=== PATIENT | female | born 1970 | race Hispanic/Latino ===

== ENCOUNTER 2017-06-10 13:30 | Inpatient (IN) | payer SELFPAY ==
[2017-06-10 14:17] LABS: HEMATOCRIT 43.8 % (36-48); MEAN CORPUSCULAR HEMOGLOBIN 30.4 pg (27.0-33.0); MEAN CORPUSCULAR HGB CONC 33.8 g/dL (32.0-36.0); MEAN CORPUSCULAR VOLUME 89.9 fL (79-99); RED BLOOD CELL COUNT(AUTO) 4.87 MIL/uL (4.00-5.50); WHITE BLOOD COUNT (AUTO) 9.5 K/uL (4.8-10.8)
[2017-06-10 14:18] LABS: BASOPHILS % (AUTO) 0.6 % (0.0-5.0); EOSINOPHILS % (AUTO) 1.2 % (0.0-8.0); LYMPHOCYTES % (AUTO) 22.2 % (21.0-51.0); MONOCYTES % (AUTO) 6.7 % (3.0-13.0); NEUTROPHILS % (AUTO) 69.3 % (40.0-77.0); PLATELET COUNT (AUTO) 312 K/uL (130-400); RED CELL DISTRIBUTION WIDTH 13.9 % (11.0-15.5)
[2017-06-10 14:26] LABS: CREATININE 0.7 mg/dL (0.5-1.5); POTASSIUM 3.9 mmol/L (3.5-5.1)
[2017-06-10 14:31] LABS: ALBUMIN 3.4 g/dL (3.5-5.0); BILIRUBIN,TOTAL 0.2 mg/dL (0.2-1.0); TOTAL PROTEIN, SERUM 8.5 g/dL (6.0-8.3)
[2017-06-10] MEDS ORDERED: ONDANSETRON HCL 4 MG/2 ML VIAL ONE ×2 (14:40→18:17)
[2017-06-10] MEDS ORDERED: LABETALOL HCL 5 MG/ML 20ML VIAL IV ONE (14:41)
[2017-06-10] MEDS ORDERED: MORPHINE SULFATE 4 MG/1ML SYG ONE ×2 (14:41→16:12)
[2017-06-10] MEDS ORDERED: NICARDIPINE IN NACL, ISO-OSM 200 ML IV ONE ×2 (15:54→19:33)
[2017-06-10 18:42] VITALS: BP 152/94
[2017-06-10 19:30] VITALS: BP 145/88
[2017-06-10 20:00] VITALS: BP 143/87
[2017-06-10] MEDS ORDERED: NICARDIPINE HCL 100 MG in SODIUM CHLORIDE 0.9% 60 ML IV PRN (20:30)
[2017-06-10 21:00] VITALS: BP 140/83
[2017-06-10] MEDS ORDERED: ONDANSETRON HCL MDV 20ML 2 MG/ML VIAL IVP PRN (21:45)
[2017-06-10 22:00] VITALS: BP 143/70
[2017-06-10] MEDS: ACETAMINOPHEN 325 MG TAB PO PRN (22:55)
[2017-06-10 23:00] VITALS: BP 148/87
[2017-06-11] VITALS (23 sets, daily range): BP systolic 92–184; BP diastolic 52–116
[2017-06-11] MEDS: CLONIDINE HCL 0.1 MG TABLET PO PRN ×3 (01:14→17:12)
[2017-06-11 04:02] LABS: HEMATOCRIT 37.3 % (36-48); MEAN CORPUSCULAR HEMOGLOBIN 31.1 pg (27.0-33.0); MEAN CORPUSCULAR HGB CONC 34.5 g/dL (32.0-36.0); PLATELET COUNT (AUTO) 315 K/uL (130-400); RED BLOOD CELL COUNT(AUTO) 4.14 MIL/uL (4.00-5.50); RED CELL DISTRIBUTION WIDTH 13.7 % (11.0-15.5)
[2017-06-11 04:26] LABS: BILIRUBIN,TOTAL 0.3 mg/dL (0.2-1.0); CREATININE 0.8 mg/dL (0.5-1.5); TOTAL PROTEIN, SERUM 7.3 g/dL (6.0-8.3)
[2017-06-11] MEDS: ACETAMINOPHEN EXTRA STRENGTH 500 MG TABLET PO PRN ×2 (07:50→17:22)
[2017-06-11] MEDS: HYDRALAZINE HCL 10 MG TABLET PO SCH ×3 (07:50→20:45)
[2017-06-11] MEDS: LISINOPRIL 2.5 MG TABLET PO SCH ×2 (07:51→09:00)
[2017-06-11] MEDS ORDERED: CAPTOPRIL 12.5 MG TABLET PO SCH (09:00)
[2017-06-11] MEDS ORDERED: HYDRALAZINE HCL 20 MG/ML VIAL IV PRN (10:00)
[2017-06-11] MEDS ORDERED: LISINOPRIL 2.5 MG TABLET PO SCH (14:30)
[2017-06-11] MEDS ORDERED: LABETALOL HCL 5 MG/ML 20ML VIAL IV SCH (14:30)
[2017-06-11] MEDS ORDERED: LISINOPRIL 20 MG TABLET PO SCH ×2 (14:45→15:18)
[2017-06-11] MEDS: LABETALOL HCL 200 MG TABLET PO SCH ×4 (14:45→20:45)
[2017-06-11] MEDS ORDERED: PHARMACY COMMUNICATION MISC SCH (18:45)
[2017-06-11] MEDS ORDERED: ALPRAZOLAM 0.5 MG TABLET PO ONE (18:45)
[2017-06-11] MEDS ORDERED: COMPOUND PO MISCELLANEOUS 1 EACH MISC MISC PRN (18:45)
[2017-06-11 19:19] LABS: CREATINE KINASE MB 1.4 ng/mL (0.5-3.6); TROPONIN I 0.07 ng/mL (0.00-0.06)
[2017-06-11] MEDS ORDERED: LIDOCAINE HCL 2% VISCOUS 30 ML, MAG HYDROX/AL HYDROX/SIMETH 30 ML, DICYCLOMINE HCL 20 MG PO ONE ×3 (19:30)
[2017-06-12] VITALS (21 sets, daily range): BP systolic 107–156; BP diastolic 57–107
[2017-06-12] MEDS: LABETALOL HCL 200 MG TABLET PO SCH ×2 (08:43→20:09)
[2017-06-12] MEDS: LISINOPRIL 40 MG TABLET PO SCH (08:43)
[2017-06-12] MEDS: ACETAMINOPHEN 325 MG TAB PO PRN (10:52)
[2017-06-13 03:52] VITALS: BP 146/95
[2017-06-13 05:21] LABS: BASOPHILS % (AUTO) 0.6 % (0.0-5.0); EOSINOPHILS % (AUTO) 1.6 % (0.0-8.0); HEMATOCRIT 38.1 % (36-48); LYMPHOCYTES % (AUTO) 29.8 % (21.0-51.0); MEAN CORPUSCULAR HEMOGLOBIN 30.8 pg (27.0-33.0); MEAN CORPUSCULAR HGB CONC 33.8 g/dL (32.0-36.0); MEAN CORPUSCULAR VOLUME 90.9 fL (79-99); MONOCYTES % (AUTO) 8.7 % (3.0-13.0); NEUTROPHILS % (AUTO) 59.3 % (40.0-77.0); NUCLEATED RED BLOOD CELLS 0.1 % (0.0-0.19); PLATELET COUNT (AUTO) 284 K/uL (130-400); RED BLOOD CELL COUNT(AUTO) 4.19 MIL/uL (4.00-5.50); RED CELL DISTRIBUTION WIDTH 14.3 % (11.0-15.5); WHITE BLOOD COUNT (AUTO) 7.5 K/uL (4.8-10.8)
[2017-06-13 05:41] LABS: CREATININE 0.9 mg/dL (0.5-1.5); POTASSIUM 3.9 mmol/L (3.5-5.1)
[2017-06-13 07:10] VITALS: BP 159/103
[2017-06-13] MEDS: LABETALOL HCL 200 MG TABLET PO SCH (07:59)
[2017-06-13] MEDS: LISINOPRIL 40 MG TABLET PO SCH (07:59)
[2017-06-13] MEDS ORDERED: NIFEDIPINE ER 30 MG TAB PO SCH (11:15)
[2017-06-13 11:40] VITALS: BP 179/102
[2017-06-13] MEDS ORDERED: LISI-613 PO (12:29)
[2017-06-13] MEDS ORDERED: IBUP-2070 PO (12:29)
== END 2017-06-13 14:10 | disposition left against medical advice (07) | DRG 305 ==
LOC: EDH 13:30 → EDHIP 13:31 → 2BH 18:48 → 2DH 06-12 16:45
PROVIDERS: ADMIT Family Medicine; ATTEND Family Medicine
DX: I16.1 Hypertensive emergency (principal); E66.9 Obesity, unspecified; F32.9 Major depressive disorder, single episode, unspecified; I10 Essential (primary) hypertension; Z91.14 Patient's other noncompliance with medication regimen; Z91.19 Patient's noncompliance with other medical treatment and regimen; Z91.5 Personal history of self-harm
CPT/HCPCS: 36415; 70450; 76770; 80048; 80053; 81025; 82550; 82553; 83874; 84484; 85025; 85027; 93005; 99291; J0360; J2270; J2405; J3490

== ENCOUNTER 2017-12-08 12:09 | Emergency (ER) | payer SELFPAY ==
[~2017-12-08 12:09] MED LIST: IBUP-2070 PO; LISI-613 PO
[2017-12-08 12:55] LABS: APPEARANCE,URINE Clear (CLEAR); BASOPHILS % (AUTO) 0.5 % (0.0-5.0); BILIRUBIN,URINE Negative (NEGATIVE); COLOR,URINE Yellow (YELLOW); EOSINOPHILS % (AUTO) 0.9 % (0.0-8.0); GLUCOSE, URINE (UA) Negative (NEGATIVE); HEMATOCRIT 42.8 % (36-48); KETONES,URINE Negative (NEGATIVE); LEUKOCYTE ESTERASE ,URINE Negative (NEGATIVE); LYMPHOCYTES % (AUTO) 14.1 % (21.0-51.0); MEAN CORPUSCULAR HEMOGLOBIN 30.6 pg (27.0-33.0); MEAN CORPUSCULAR HGB CONC 34.1 g/dL (32.0-36.0); MEAN CORPUSCULAR VOLUME 89.6 fL (79-99); MONOCYTES % (AUTO) 7.2 % (3.0-13.0); NEUTROPHILS % (AUTO) 77.3 % (40.0-77.0); NITRATE,URINE Negative (NEGATIVE); OCCULT BLOOD,URINE Small (NEGATIVE); PH,URINE 6.5 (5.0-8.0); PLATELET COUNT (AUTO) 249 K/uL (130-400); PROTEIN,URINE POS 2+ (NEGATIVE); RED BLOOD CELL COUNT(AUTO) 4.78 MIL/uL (4.00-5.50); RED CELL DISTRIBUTION WIDTH 13.9 % (11.0-15.5); UROBILINOGEN,URINE 0.2 mg/dL (0.2-1.0); WHITE BLOOD COUNT (AUTO) 11.4 K/uL (4.8-10.8)
[2017-12-08 13:07] LABS: CREATININE 0.9 mg/dL (0.5-1.5); POTASSIUM 3.8 mmol/L (3.5-5.1)
[2017-12-08] MEDS ORDERED: LABETALOL HCL 5 MG/ML 20ML VIAL IV ONE (13:08)
[2017-12-08 13:12] LABS: ALBUMIN 3.4 g/dL (3.5-5.0); BILIRUBIN,TOTAL 0.3 mg/dL (0.2-1.0); TOTAL PROTEIN, SERUM 8.7 g/dL (6.0-8.3)
[2017-12-08] MEDS ORDERED: IOHEXOL-350 75 ML VIAL IV ONE (13:23)
[2017-12-08 13:24] LABS: BACTERIA,URINE Few /HPF (None Seen); RBC,URINE 0-1 /HPF (0-1); WBC,URINE 0-1 /HPF (0-1)
[2017-12-08] MEDS ORDERED: NICARDIPINE IN NACL, ISO-OSM 200 ML IV ONE (13:47)
[2017-12-08 14:14] LABS: AMPHET/METH SCREEN,URINE NEGATIVE (NEGATIVE); BARBITURATE SCREEN, URINE NEGATIVE (NEGATIVE); BENZODIAZEPINES SCREEN,URINE NEGATIVE (NEGATIVE); CANNABINOID SCREEN,URINE NEGATIVE (NEGATIVE); COCAINE SCREEN,URINE NEGATIVE (NEGATIVE); OPIATE SCREEN,URINE NEGATIVE (NEGATIVE); PHENCYCLIDINE SCREEN,URINE NEGATIVE (NEGATIVE)
[2017-12-08] MEDS ORDERED: KETOROLAC TROMETHAMINE 15MG/ML ONE (15:01)
[2017-12-08] MEDS ORDERED: NIFEDIPINE 10 MG CAP ONE (15:57)
[2017-12-08] MEDS ORDERED: CLONIDINE HCL 0.1 MG TABLET ONE (15:57)
== END 2017-12-08 16:49 | disposition home or self-care (01) ==
LOC: EDH 12:09
DX: I10 Essential (primary) hypertension (principal); R10.11 Right upper quadrant pain; Z98.890 Other specified postprocedural states; Z88.0 Allergy status to penicillin
CPT/HCPCS: 36415; 74177; 80053; 80305; 81001; 85025; 96365; 96366; 96375; 99285; J1885; J3490 ×2; Q9967

== ENCOUNTER 2020-05-12 10:53 | Emergency (ER) | payer SELFPAY ==
[~2020-05-12 10:53] MED LIST changes: -LISI-613 PO; +LISI20TA24 PO
[2020-05-12] MEDS ORDERED: MAG HYDROX/AL HYDROX/SIMETH ES 30 ML SUSP UDCUP ONE (11:07)
[2020-05-12] MEDS ORDERED: LIDOCAINE HCL 2% VISCOUS 15 ML UDCUP ONE (11:07)
[2020-05-12] MEDS ORDERED: NIFEDIPINE 10 MG CAP ONE ×2 (11:08→12:44)
[2020-05-12] MEDS ORDERED: FAMOTIDINE 20MG TAB 20 MG TAB ONE (11:08)
[2020-05-12 11:42] LABS: BASOPHILS % (AUTO) 0.3 % (0.0-5.0); EOSINOPHILS % (AUTO) 0.5 % (0.0-8.0); HEMATOCRIT 42.9 % (36-48); LYMPHOCYTES % (AUTO) 13.2 % (21.0-51.0); MEAN CORPUSCULAR HEMOGLOBIN 29.1 pg (27.0-33.0); MEAN CORPUSCULAR HGB CONC 33.3 g/dL (32.0-36.0); MEAN CORPUSCULAR VOLUME 87.2 fL (79-99); MONOCYTES % (AUTO) 4.6 % (3.0-13.0); PLATELET COUNT (AUTO) 351 K/uL (130-400); RED BLOOD CELL COUNT(AUTO) 4.92 MIL/uL (4.00-5.50); RED CELL DISTRIBUTION WIDTH 14.6 % (11.0-15.5); WHITE BLOOD COUNT (AUTO) 14.8 K/uL (4.8-10.8)
[2020-05-12 11:55] LABS: APPEARANCE,URINE Clear (CLEAR); BILIRUBIN,URINE Negative (NEGATIVE); COLOR,URINE Yellow (YELLOW); GLUCOSE, URINE (UA) Negative (NEGATIVE); KETONES,URINE Negative (NEGATIVE); LEUKOCYTE ESTERASE ,URINE Trace (NEGATIVE); NITRATE,URINE Negative (NEGATIVE); OCCULT BLOOD,URINE Negative (NEGATIVE); PROTEIN,URINE Trace mg/dL (NEGATIVE)
[2020-05-12 12:15] LABS: ALANINE AMINOTRANSFERASE 22 U/L (12-78); ALBUMIN 2.9 g/dL (3.5-5.0); ASPARTATE AMINOTRANSFERASE 16 U/L (10-37); BILIRUBIN,TOTAL 0.2 mg/dL (0.2-1.0); CARBON DIOXIDE 32 mmol/L (21-32); CHLORIDE 99 mmol/L (101-111); GLOMERULAR FILTR. RATE CALC 63 mL/min (>60); GLUCOSE,RANDOM 103 mg/dL (70-105); POTASSIUM 3.3 mmol/L (3.5-5.1); SODIUM SERUM 137 mmol/L (136-145); TOTAL PROTEIN, SERUM 7.4 g/dL (6.0-8.3); UREA NITROGEN, BLOOD 15 mg/dL (7-18)
[2020-05-12 12:17] LABS: LIPASE < 50 U/L (114-286)
[2020-05-12 12:29] LABS: B-TYPE NATRIURETIC PEPTIDE 19 pg/mL (0-100)
[2020-05-12 12:37] LABS: BACTERIA,URINE Few /HPF (None Seen); CALCIUM OXALATE CRYSTALS,UR Few /LPF (None Seen); RBC,URINE 0-1 /HPF (0-1); SQUAMOUS EPITHELIAL CELL,UR Rare /HPF (0-2); WBC,URINE 0-1 /HPF (0-1)
[2020-05-12] MEDS ORDERED: POTASSIUM BICARB/CIT AC 25 MEQ TABLET.EFF ONE (12:44)
== END 2020-05-12 13:20 | disposition home or self-care (01) ==
LOC: EDH 10:53
DX: K29.00 Acute gastritis without bleeding (principal); R03.0 Elevated blood-pressure reading, without diagnosis of hypertension; E66.01 Morbid (severe) obesity due to excess calories; E87.6 Hypokalemia; I10 Essential (primary) hypertension; Z88.0 Allergy status to penicillin
CPT/HCPCS: 36415; 71045; 80053; 81001; 83605; 83690; 83880; 84484; 85025; 93005

== ENCOUNTER 2020-11-19 00:13 | Emergency (ER) | payer BC ==
[~2020-11-19] VITALS: Ht 152.4 cm; Wt 107.5 kg
[2020-11-19 00:15] VITALS: BP 148/92
[2020-11-19] MEDS ORDERED: OXYMETAZOLINE HCL SPRAY 15 ML BOTTLE ONE (00:30)
[2020-11-19] MEDS ORDERED: OXYMETAZOLINE HCL SPRAY 15 ML BOTTLE EN ONE (01:00)
== END 2020-11-19 02:02 | disposition home or self-care (01) ==
LOC: EDH 00:13
DX: R04.0 Epistaxis (principal); E78.00 Pure hypercholesterolemia, unspecified; I10 Essential (primary) hypertension; Z79.1 Long term (current) use of non-steroidal anti-inflammatories (NSAID); Z79.899 Other long term (current) drug therapy
CPT/HCPCS: 99282

== ENCOUNTER 2023-11-24 14:26 | Inpatient (IN) | payer BC ==
[~2023-11-24] VITALS: Ht 152.4 cm; Wt 105.9 kg
[~2023-11-24 14:26] MED LIST changes: +AEC81 PO; +CLON0.1T PO; +FENO134C21 PO; -IBUP-2070 PO; +LABE200T7 PO; -LISI20TA24 PO; +LOSA100T59 PO
[2023-11-24] MEDS: ondanSETRON 4MG INJ IVP STA (14:55)
[2023-11-24] MEDS: 0.9%NACL 1000ML 1,000 ML IV STA (14:55)
[2023-11-24] MEDS: morPHINE 2 MG SYG IVP STA (14:55)
[2023-11-24 15:01] LABS: BASOPHILS # (AUTO) 0.05 K/uL (0.00-0.20); BASOPHILS % (AUTO) 0.2 % (0.0-5.0); EOSINOPHILS # (AUTO) 0.17 K/uL (0.00-0.70); EOSINOPHILS % (AUTO) 0.8 % (0.0-8.0); HEMATOCRIT 45.2 % (36-48); IMMATURE GRANULOCYTE ABSOLUTE 0.12 K/uL (0-1); LYMPHOCYTES # (AUTO) 2.6 K/uL (1.0-4.8); LYMPHOCYTES % (AUTO) 12.4 % (21.0-51.0); MEAN CORPUSCULAR HEMOGLOBIN 29.5 pg (27.0-33.0); MEAN CORPUSCULAR HGB CONC 32.7 g/dL (32.0-36.0); MONOCYTES # (AUTO) 1.1 K/uL (0.1-1.0); MONOCYTES % (AUTO) 5.2 % (3.0-13.0); NEUTROPHILS # (AUTO) 16.6 K/uL (1.8-7.7); NEUTROPHILS % (AUTO) 80.8 % (40.0-77.0); PLATELET COUNT (AUTO) 466 K/uL (130-400); RED BLOOD CELL COUNT(AUTO) 5.02 MIL/uL (4.00-5.50); RED CELL DISTRIBUTION WIDTH 13.2 % (11.0-15.5); WHITE BLOOD COUNT (AUTO) 20.5 K/uL (4.8-10.8)
[2023-11-24 15:15] LABS: CREATININE 1.2 mg/dL (0.5-1.0); POTASSIUM 4.3 mmol/L (3.5-5.1)
[2023-11-24 15:19] LABS: ALBUMIN 3.8 g/dL (3.5-5.0); BILIRUBIN,TOTAL 0.4 mg/dL (0.2-1.0); TOTAL PROTEIN, SERUM 8.8 g/dL (6.0-8.3)
[2023-11-24] MEDS: hydroMORPHone 0.5 MG SYG (0.5MG/0.5ML) IVP STA ×2 (15:25→17:38)
[2023-11-24 15:36] LABS: INR 1.05 (0.85-1.15); PROTHROMBIN TIME 11.3 SEC (9.6-11.6)
[2023-11-24 15:37] LABS: PARTIAL THROMBOPLASTIN TIME 22.8 SEC (26.3-35.5)
[2023-11-24] MEDS: levoFLOXacin 500 MG/D5W 100 ML 100 ML ONE (15:47)
[2023-11-24] MEDS: levoFLOXacin 250 MG/D5W 50ML 50 ML ONE (15:47)
[2023-11-24] MEDS: levoFLOXacin 750 MG/D5W 150ML BAG IV STA (15:47)
[2023-11-24] MEDS: hydrALAZine 20MG/ML VIAL IV STA (17:37)
[2023-11-24 17:52] LABS: CHOLESTEROL 174 mg/dL (<200); HDL CHOLESTEROL 58 mg/dL (35-85); LDL DIRECT 94 mg/dL (0-99); TRIGLYCERIDES 193 mg/dL (30-200)
[2023-11-24 18:08] LABS: APPEARANCE,URINE TURBID (CLEAR); BILIRUBIN,URINE NEGATIVE (NEGATIVE); COLOR,URINE ORANGE (YELLOW); GLUCOSE, URINE (UA) NEGATIVE (NEGATIVE); KETONES,URINE 5 mg/dL (NEGATIVE); LEUKOCYTE ESTERASE ,URINE 250 Leu/uL (NEGATIVE); NITRATE,URINE NEGATIVE (NEGATIVE); PH,URINE 5.5 (5.0-8.0); PROTEIN,URINE 100 mg/dL (NEGATIVE)
[2023-11-24 18:11] LABS: ADD UA MICROSCOPIC YES
[2023-11-24 18:19] LABS: RBC,URINE 26-50 /HPF (0-1)
[2023-11-24] MEDS ORDERED: ASPI-1443 PO (20:11)
[2023-11-24] MEDS ORDERED: LABE200T7 PO (20:11)
[2023-11-24] MEDS ORDERED: FENO134C21 PO (20:11)
[2023-11-24] MEDS ORDERED: LOSA100T59 PO (20:11)
[2023-11-24] MEDS ORDERED: CLON0.1T PO (20:11)
[2023-11-24] MEDS ORDERED: ondanSETRON 4MG INJ IVP PRN (20:30)
[2023-11-24] MEDS ORDERED: acetaMINOPHEN 650 MG SUPPOSITORY RC PRN (20:30)
[2023-11-24] MEDS ORDERED: acetaMINOPHEN 325 MG TAB PO PRN (20:30)
[2023-11-24] MEDS: morPHINE 2 MG SYG IVP PRN (20:43)
[2023-11-24] MEDS: LAbetaLOL 20MG SYG IV PRN (20:43)
[2023-11-24] MEDS: cefTRIAXone 1G VIAL IVPB SCH (20:43)
[2023-11-24] MEDS: metRONIDazole 500MG/100ML BAG IV SCH (20:48)
[2023-11-24] MEDS: LACTATED RINGERS 1000ML IV ONE (21:11)
[2023-11-24] MEDS: hydrALAZine 20MG/ML VIAL IV PRN (22:49)
[2023-11-24] MEDS: HYDROcodone/APAP 5/325 1 TAB TABLET PO PRN (22:57)
[2023-11-24 23:50] VITALS: BP 155/88; PULSE 115; RESP 19; TEMP 98.5
[2023-11-25] VITALS (8 sets, daily range): BP systolic 114–163; BP diastolic 70–99; PULSE 82–107; RESP 17–20; TEMP 97.8–98.8; O2SAT 93–96
[2023-11-25] MEDS: INSULIN humuLIN R 100 UNIT/ML 3ML SQ SCH
[2023-11-25 04:49] LABS: BASOPHILS # (AUTO) 0.03 K/uL (0.00-0.20); BASOPHILS % (AUTO) 0.2 % (0.0-5.0); EOSINOPHILS # (AUTO) 0.05 K/uL (0.00-0.70); EOSINOPHILS % (AUTO) 0.3 % (0.0-8.0); HEMATOCRIT 40.5 % (36-48); IMMATURE GRANULOCYTE ABSOLUTE 0.08 K/uL (0-1); LYMPHOCYTES # (AUTO) 2.3 K/uL (1.0-4.8); LYMPHOCYTES % (AUTO) 15.2 % (21.0-51.0); MEAN CORPUSCULAR HEMOGLOBIN 30.2 pg (27.0-33.0); MEAN CORPUSCULAR HGB CONC 32.3 g/dL (32.0-36.0); MEAN CORPUSCULAR VOLUME 93.3 fL (79-99); MONOCYTES # (AUTO) 0.7 K/uL (0.1-1.0); MONOCYTES % (AUTO) 4.6 % (3.0-13.0); NEUTROPHILS # (AUTO) 11.8 K/uL (1.8-7.7); NEUTROPHILS % (AUTO) 79.2 % (40.0-77.0); PLATELET COUNT (AUTO) 397 K/uL (130-400); RED BLOOD CELL COUNT(AUTO) 4.34 MIL/uL (4.00-5.50); RED CELL DISTRIBUTION WIDTH 13.2 % (11.0-15.5); WHITE BLOOD COUNT (AUTO) 14.9 K/uL (4.8-10.8)
[2023-11-25 05:09] LABS: CREATININE 1.1 mg/dL (0.5-1.0); MAGNESIUM 1.8 mg/dL (1.80-2.40); PHOSPHORUS 3.5 mg/dL (2.5-4.9); POTASSIUM 4.1 mmol/L (3.5-5.1)
[2023-11-25] MEDS: PANTOPrazole 40 MG/VIAL IVP SCH (08:46)
[2023-11-25] MEDS ORDERED: PANTOPrazole 40 MG TAB DR PO SCH (09:00)
[2023-11-25] MEDS: LAbetaLOL HCL 200 MG TABLET PO SCH (19:49)
[2023-11-25] MEDS: CEFTRIAXONE 2GM VIAL IVPB SCH (19:49)
[2023-11-26] VITALS (7 sets, daily range): BP systolic 106–154; BP diastolic 52–78; PULSE 75–94; RESP 17–18; TEMP 97.7–98.7; O2SAT 94
[2023-11-26 05:25] LABS: HEMATOCRIT 38.8 % (36-48); MEAN CORPUSCULAR HEMOGLOBIN 29.4 pg (27.0-33.0); MEAN CORPUSCULAR HGB CONC 31.2 g/dL (32.0-36.0); MEAN CORPUSCULAR VOLUME 94.2 fL (79-99); RED BLOOD CELL COUNT(AUTO) 4.12 MIL/uL (4.00-5.50); RED CELL DISTRIBUTION WIDTH 13.3 % (11.0-15.5); WHITE BLOOD COUNT (AUTO) 13.3 K/uL (4.8-10.8)
[2023-11-26 05:36] LABS: CREATININE 1.2 mg/dL (0.5-1.0); MAGNESIUM 1.8 mg/dL (1.80-2.40); POTASSIUM 3.7 mmol/L (3.5-5.1)
[2023-11-26] MEDS: FENOFIBRATE NANOCRYSTALLIZED 48 MG TAB PO SCH (08:28)
[2023-11-26] MEDS: ASPIRIN 81 MG EC TAB PO SCH (08:28)
[2023-11-26] MEDS: cloNIDine HCL 0.1 MG TABLET PO SCH (08:29)
[2023-11-26] MEDS: LoSARTan 100 MG TABLET PO SCH (08:29)
[2023-11-26] MEDS: NS-20 MEQ KCL 1000ML 1,000 ML IV SCH (12:18)
[2023-11-26] MEDS: MAGNESIUM 2GM PREMIX 50ML 50 ML IV PRN (16:10)
[2023-11-27 01:12] VITALS: BP 159/93; PULSE 85; RESP 18; TEMP 98.5
[2023-11-27 04:15] VITALS: BP 144/76; PULSE 79; RESP 18; TEMP 98.6
[2023-11-27 06:14] LABS: HEMATOCRIT 38.8 % (36-48); MEAN CORPUSCULAR HEMOGLOBIN 29.8 pg (27.0-33.0); MEAN CORPUSCULAR HGB CONC 31.4 g/dL (32.0-36.0); MEAN CORPUSCULAR VOLUME 94.6 fL (79-99); RED BLOOD CELL COUNT(AUTO) 4.1 MIL/uL (4.00-5.50); RED CELL DISTRIBUTION WIDTH 13.2 % (11.0-15.5)
[2023-11-27 06:30] LABS: ALBUMIN 2.9 g/dL (3.5-5.0); BILIRUBIN,TOTAL 0.3 mg/dL (0.2-1.0); CREATININE 0.9 mg/dL (0.5-1.0); MAGNESIUM 2.1 mg/dL (1.80-2.40); POTASSIUM 3.7 mmol/L (3.5-5.1); TOTAL PROTEIN, SERUM 7.2 g/dL (6.0-8.3)
[2023-11-27] MEDS ORDERED: PoTASSium chl 10% ELIXIR 20MEQ 20 MEQ/15 ML UDCUP PO PRN (07:30)
[2023-11-27] MEDS ORDERED: PoTASSium chloRIDE 20MEQ/100ML 100 ML IV PRN (07:30)
[2023-11-27] MEDS ORDERED: PoTASSium chloRIDE 20MEQ ER 20 MEQ ERTAB PO PRN (07:30)
[2023-11-27 08:00] VITALS: BP 147/76; PULSE 90; RESP 20; TEMP 97.6; O2SAT 100
[2023-11-27] MEDS ORDERED: LIDOCAINE HCL 1% MDV 50ML VIAL ONE (08:19)
[2023-11-27] MEDS: ENOXAPARIN SODIUM 40 MG/0.4 ML SYRINGE SQ SCH (09:00)
[2023-11-27 12:00] VITALS: BP 155/88; PULSE 79; RESP 18; TEMP 98.1
[2023-11-27] MEDS ORDERED: LEVO750T68 PO (13:50)
[2023-11-27] MEDS ORDERED: METR-172 PO (13:50)
[2023-11-27 15:56] VITALS: BP 132/73; PULSE 81; RESP 20; TEMP 98.1
== END 2023-11-27 18:15 | disposition home or self-care (01) | DRG 871 ==
LOC: EDH 14:26 → OBSVTOIN 20:21 → EDHIP 20:21 → 3BH 23:37
PROVIDERS: ADMIT Internal Medicine; ATTEND Internal Medicine
DX: A41.9 Sepsis, unspecified organism (principal); K85.90 Acute pancreatitis without necrosis or infection, unspecified; N17.0 Acute kidney failure with tubular necrosis; E87.1 Hypo-osmolality and hyponatremia; I16.1 Hypertensive emergency; Z68.42 Body mass index [BMI] 45.0-49.9, adult; N30.00 Acute cystitis without hematuria; I10 Essential (primary) hypertension; K43.9 Ventral hernia without obstruction or gangrene; E78.00 Pure hypercholesterolemia, unspecified; E66.01 Morbid (severe) obesity due to excess calories; Z88.0 Allergy status to penicillin; Z88.8 Allergy status to other drugs, medicaments and biological substances; Z79.82 Long term (current) use of aspirin; Z79.899 Other long term (current) drug therapy
CPT/HCPCS: 36415; 74150; 74176; 76705; 80048; 80053; 80061; 81001; 82948; 83605; 83690; 83735; 84100; 84145; 85025; 85027; 85610; 85730; 87040; 87086; 96374; 96375; 96376; G0378; J0360; J0696; J1171; J1956; J2270; J2405; J2470; J3475; J3480; J3490; J7030; J7120

== ENCOUNTER 2023-12-27 16:35 | Emergency (ER) | payer BC ==
[~2023-12-27] VITALS: Ht 152.4 cm; Wt 104.8 kg
[~2023-12-27 16:35] MED LIST changes: -AEC81 PO; +ASPI-1443 PO; +LEVO750T68 PO; +METR-172 PO
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
[2023-12-27 17:04] VITALS: BP 170/90; PULSE 80; RESP 16; TEMP 98.3; O2SAT 98
== END 2023-12-27 17:14 | disposition home or self-care (01) ==
LOC: EDH 16:35
DX: T85.9XXA Unspecified complication of internal prosthetic device, implant and graft, initial encounter (principal); E78.00 Pure hypercholesterolemia, unspecified; I10 Essential (primary) hypertension; Z79.82 Long term (current) use of aspirin; Z79.899 Other long term (current) drug therapy; Z88.0 Allergy status to penicillin; Z88.8 Allergy status to other drugs, medicaments and biological substances; Y83.8 Other surgical procedures as the cause of abnormal reaction of the patient, or of later complication, without mention of misadventure at the time of the procedure; Y92.89 Other specified places as the place of occurrence of the external cause
CPT/HCPCS: 99282

== ENCOUNTER 2024-02-03 21:08 | Inpatient (IN) | payer BC ==
[~2024-02-03] VITALS: Ht 152.4 cm; Wt 102.1 kg
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
[2024-02-03] MEDS: FAMOTIDINE 20MG VIAL IV ONE (21:52)
[2024-02-03] MEDS: ondanSETRON 4MG INJ IVP ONE (21:52)
[2024-02-03] MEDS: 0.9%NACL 1000ML 1,000 ML IV ONE (21:52)
[2024-02-03] MEDS: morPHINE 4 MG SYG IVP ONE ×2 (21:52→23:40)
[2024-02-03 21:57] LABS: BASOPHILS # (AUTO) 0.04 K/uL (0.00-0.20); BASOPHILS % (AUTO) 0.4 % (0.0-5.0); EOSINOPHILS # (AUTO) 0.05 K/uL (0.00-0.70); EOSINOPHILS % (AUTO) 0.5 % (0.0-8.0); HEMATOCRIT 41.6 % (36-48); IMMATURE GRANULOCYTE ABSOLUTE 0.07 K/uL (0-1); LYMPHOCYTES # (AUTO) 1.1 K/uL (1.0-4.8); LYMPHOCYTES % (AUTO) 9.7 % (21.0-51.0); MEAN CORPUSCULAR HEMOGLOBIN 29.8 pg (27.0-33.0); MEAN CORPUSCULAR HGB CONC 32.7 g/dL (32.0-36.0); MONOCYTES # (AUTO) 0.4 K/uL (0.1-1.0); MONOCYTES % (AUTO) 3.2 % (3.0-13.0); NEUTROPHILS # (AUTO) 9.5 K/uL (1.8-7.7); NEUTROPHILS % (AUTO) 85.6 % (40.0-77.0); PLATELET COUNT (AUTO) 382 K/uL (130-400); RED BLOOD CELL COUNT(AUTO) 4.57 MIL/uL (4.00-5.50); RED CELL DISTRIBUTION WIDTH 14.7 % (11.0-15.5); WHITE BLOOD COUNT (AUTO) 11.1 K/uL (4.8-10.8)
[2024-02-03 22:05] LABS: CREATININE 1.2 mg/dL (0.5-1.0); POTASSIUM 4.4 mmol/L (3.5-5.1)
[2024-02-03] MEDS: ASPIRIN 325MG TAB PO ONE (23:41)
--- NOTE | 2024-02-03 23:45 | HMCIMG ---
CT ABDOMEN/PELVIS W/O CONTRAST HISTORY: Diffuse abdominal pain COMPARISON: November 26, 2023 TECHNIQUE: Multiple sequential axial images of the abdomen and pelvis were obtained from the dome of the diaphragm through symphysis pubis. Patient was not given contrast through intravenous route. Oral contrast was not given. FINDINGS: No pleural effusion is seen bilaterally. There is no evidence of parenchymal disease or pulmonary nodule of the visualized lower lungs. Degenerative changes of the thoracolumbar spine are present. The heart is not enlarged. Enlarged right lateral ventral wall hernia is seen with bowel contents and colon content. No definite bowel obstruction is seen. Gallbladder is mildly distended. There is mild intrahepatic ductal dilatation. Common duct is dilated measuring 2 cm. Clinical correlation is recommended. Pancreatic head is enlarged with adjacent fat stranding may be related to acute pancreatitis. Lipase correlation may be helpful. The liver, spleen, adrenal glands are unremarkable. There is no evidence of hydronephrosis bilaterally. No evidence of renal stone is seen. Fecal material is seen in the colon. There are normal size retroperitoneal and mesenteric lymph nodes. No ascites is seen. Atherosclerotic changes are present. Pelvic sidewalls are symmetric bilaterally. Bladder is moderately distended. No IMPRESSION: 1. Enlarged right lateral ventral wall hernia is seen with bowel contents and colon content. No definite bowel obstruction is seen. Gallbladder is mildly distended. There is mild intrahepatic ductal dilatation. Common duct is dilated measuring 2 cm. Clinical correlation is recommended. Pancreatic head is enlarged with adjacent fat stranding may be related to acute pancreatitis. Lipase correlation may be helpful. CT was performed with one or more following dose reduction techniques: automated exposure control, adjustment of the mA and kv according to patient's size, or use of a iterative reconstruction technique.
[2024-02-04] MEDS: hydroMORPHone 1 MG INJ IVP ONE (01:00)
[2024-02-04 01:25] LABS: APPEARANCE,URINE CLEAR (CLEAR); BILIRUBIN,URINE NEGATIVE (NEGATIVE); COLOR,URINE YELLOW (YELLOW); GLUCOSE, URINE (UA) 30 mg/dL (NEGATIVE); KETONES,URINE NEGATIVE (NEGATIVE); LEUKOCYTE ESTERASE ,URINE 250 Leu/uL (NEGATIVE); MUCUS,URINE RARE LPF (None Seen); NITRATE,URINE NEGATIVE (NEGATIVE); PH,URINE 5.5 (5.0-8.0); PROTEIN,URINE 10 mg/dL (NEGATIVE); SQUAMOUS EPITHELIAL CELL,UR RARE /HPF (0-2); UROBILINOGEN,URINE 0.2 mg/dL (0.2-1.0)
--- NOTE | 2024-02-04 01:57 | NUR ---
RECEIVED REPORT AT THIS TIME; PT PLACED IN ED 17
[2024-02-04] MEDS ORDERED: acetaMINOPHEN 650 MG SUPPOSITORY RC PRN (02:00)
[2024-02-04] MEDS ORDERED: ondanSETRON 4MG INJ IVP PRN (02:00)
[2024-02-04] MEDS ORDERED: doCUSate SODIUM 100 MG CAP PO PRN (02:00)
[2024-02-04] MEDS ORDERED: MAGNESIUM 2GM PREMIX 50ML 50 ML IV SCH (02:00)
[2024-02-04] MEDS ORDERED: LACTULOSE 20 GM/30 ML UDCUP PO PRN (02:00)
[2024-02-04] MEDS ORDERED: TEMAZepam 15 MG CAPSULE PO PRN (02:00)
[2024-02-04] MEDS: 0.9%NACL 1000ML 1,000 ML IV SCH (02:01)
--- NOTE | 2024-02-04 02:01 | NUR ---
PATIENT REPORTS HAVE TAKEN HER BP MEDICATIONS ABOUT 30 MINUTES AGO
[2024-02-04] MEDS ORDERED: MIRT-72 PO (02:13)
[2024-02-04] MEDS ORDERED: FENO134C21 PO (02:13)
[2024-02-04] MEDS ORDERED: LOSA1TAB42 PO (02:13)
[2024-02-04] MEDS ORDERED: LABE200T7 PO (02:13)
--- NOTE | 2024-02-04 02:13 | NUR ---
MEDICATION RECONILIATION DONE AT THIS TIME
[2024-02-04 02:16] LABS: AMPHET/METH SCREEN,URINE NEGATIVE (NEGATIVE); BARBITURATE SCREEN, URINE NEGATIVE (NEGATIVE); BENZODIAZEPINES SCREEN,URINE NEGATIVE (NEGATIVE); CANNABINOID SCREEN,URINE NEGATIVE (NEGATIVE); COCAINE SCREEN,URINE NEGATIVE (NEGATIVE); OPIATE SCREEN,URINE POSITIVE (NEGATIVE); PHENCYCLIDINE SCREEN,URINE NEGATIVE (NEGATIVE)
--- NOTE | 2024-02-04 02:31 | NUR ---
REPORT GIVEN TO ARNOL BASILIO AT THIS TIME
[2024-02-04] MEDS: hydroMORPHone 1 MG INJ IVP PRN (06:17)
--- NOTE | 2024-02-04 06:58 | NUR ---
REPORT RECEIVED FROM ARNOL BASILIO
[2024-02-04] MEDS: INSULIN humuLIN R 100 UNIT/ML 3ML SQ SCH (07:30)
--- NOTE | 2024-02-04 07:30 | NUR ---
ASSESSMENT: PT LYING W/HOB SLIGHTLY ELEVATED AND APPEARS TO BE SLEEPING. SHE IS MAKING MILD SNORNING NOISES. NO ACUTE DISTRESS NOTED AT THIS TIME.
--- NOTE | 2024-02-04 09:03 | EKG ---
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
--- NOTE | 2024-02-04 09:07 | NUR ---
PT DENIES ANY NEEDS OR WANTS AT THIS TIME. SHE STATES SHE IS CURRENTLY DOING WELL
--- NOTE | 2024-02-04 10:10 | NUR ---
BED ASSIGNEMENT: BED [id number] ASSIGNED BY SCHEDULE CHECKER Betty MURGUIA RN AT THIS TIME.
--- NOTE | 2024-02-04 10:18 | NUR ---
ADDITIONAL MED HX: SLEEP APNEA
--- NOTE | 2024-02-04 10:19 | NUR ---
PT SITTING UP IN STRETCHER AND STATES SHE IS OTHERWISE OK AT THIS TIME.
[2024-02-04 10:50] VITALS: BP 135/83; PULSE 90; RESP 20; TEMP 99.7; O2SAT 98
--- NOTE | 2024-02-04 11:25 | NUR ---
DCP: HOME met with pt who lives with her mother, at her mother's home. Pt states she is independent and able to complete ADLS and IADLS on her own. Pt uses no DME or in home cares services. PCP is Betty Garibay. Pt uses [facility] for her rx. Pt denies need for referral or SNF, and will return home at [place]. Addendum: 02/04/24 at 1129 by MOHSEN MTZ SS Amended: Links added.
--- NOTE | 2024-02-04 12:22 | HP ---
[facility] HISTORY & PHYSICAL Date Patient Seen: Feb 04, 2024 Time of Visit: 12:18 Supervising Physician: [ ] Primary Care Physician: [ ] Outpatient Specialists: [ ] Inpatient Consults: [ ] PROBLEM LIST: 1. [ ] 2. [ ] 3. [ ] 4. [ ] 5. [ ] HPI: [ ] PAST MEDICAL HX: see above PAST SURGICAL HX: noncontributory SOCIAL HISTORY: No tobacco, ETOH, or illicit drug use Coded Allergies: Penicillins (Unverified Allergy, Unknown, 02/14/22) lisinopril (Verified Adverse Reaction, Mild, COUGH, 11/03/22) REVIEW OF SYSTEMS: 12 point ROS reviewed with patient. Pertinent positives mentioned above. Otherwise negative. PHYSICAL EXAM: GENERAL: alert, weak, awake oriented x 3 HEENT: EOMI, Sclera non icteric, moist mucosa NECK: Supple, no JVD, trachea midline LUNGS: Clear breath sounds bilaterally. No wheezes HEART: Regular rate and rhythm. Normal S1 and S2, without murmurs ABD: Abdomen soft, nontender. Bowel sounds present EXT: No clubbing cyanosis or edema NEURO: Alert and oriented to person, follows commands Vital Signs (last 8hr) Date Time Temp Pulse Resp B/P (MAP) Pulse Ox O2 Delivery O2 Flow Rate FiO2 02/04/24 10:50 99.7 90 20 135/83 96 Room Air 02/04/24 10:50 98 Room Air* 0 02/04/24 10:18 99.3 90 17 135/86 98 Room Air* 0 02/04/24 08:00 86 16 128/74 94 Room Air* 0 02/04/24 06:14 88 19 153/89 99 Room Air* 0 02/04/24 04:22 98.4 98 20 158/98 98 Room Air* 0 LABS: Hematology Labs: Test 02/03/24 21:51 Range/Units White Blood Count 11.1 H 4.8-10.8 K/uL Red Blood Count 4.57 4.00-5.50 MIL/uL Hemoglobin 13.6 12.0-16.0 g/dL Hematocrit 41.6 36-48 % Mean Corpuscular Volume 91.0 79-99 fL Mean Corpuscular Hemoglobin 29.8 27.0-33.0 pg Mean Corpuscular Hemoglobin Concent 32.7 32.0-36.0 g/dL Red Cell Distribution Width 14.7 11.0-15.5 % Platelet Count 382 130-400 K/uL Mean Platelet Volume 11.5 H 7.5-10.5 fL Immature Granulocyte % (Auto) 0.6 0-1 % Neutrophils (%) (Auto) 85.6 H 40.0-77.0 % Lymphocytes (%) (Auto) 9.7 L 21.0-51.0 % Monocytes (%) (Auto) 3.2 3.0-13.0 % Eosinophils (%) (Auto) 0.5 0.0-8.0 % Basophils (%) (Auto) 0.4 0.0-5.0 % Neutrophils # (Auto) 9.5 H 1.8-7.7 K/uL Lymphocytes # (Auto) 1.1 1.0-4.8 K/uL Monocytes # (Auto) 0.4 0.1-1.0 K/uL Eosinophils # (Auto) 0.05 0.00-0.70 K/uL Basophils # (Auto) 0.04 0.00-0.20 K/uL Absolute Immature Granulocyte (auto 0.07 0-1 K/uL Nucleated Red Blood Cells 0.0 0.0-0.19 % White Cell Morphology Comment See comments Chemistry Labs: Test 02/04/24 10:31 02/03/24 21:51 Range/Units Whole Blood Glucose 100 70-110 MG/DL Sodium Level 134 L 136-145 mmol/L Potassium Level 4.4 3.5-5.1 mmol/L Chloride Level 100 L 101-111 mmol/L Carbon Dioxide Level 28 21-32 mmol/L Blood Urea Nitrogen 21 H 7-18 mg/dL Creatinine 1.2 H 0.5-1.0 mg/dL Glomerular Filtration Rate Calc 54 >90 mL/min Random Glucose 192 H 70-105 mg/dL Total Calcium 10.0 8.5-10.1 mg/dL Magnesium Level 1.70 L 1.80-2.40 mg/dL Troponin I High Sensitivity 8 4-50 ng/L Triglycerides Level 149 30-200 mg/dL Lipase 6062 *H 16-77 U/L DIAGNOSTICS / RADIOLOGY RESULTS: [ ] PLAN NEURO: Minimize central acting medications as possible. Maintain fall precautions, adequate lighting during the day PULMONARY: Supplemental 02 as needed. Maintain aspiration precautions at all times CARDIOVASCULAR: Follow hemodynamics. Vital signs per facility protocol GI & NUTRITION: Continue with nutritional support. Continue stool softeners and laxatives as needed. KIDNEYS & ELECTROLYTES: Strict monitoring of intake, output and overall fluid balance. Avoid nephrotoxic medications to the extent possible. Medications to be dosed according to renal function. Monitor electrolytes and replace as needed ENDOCRINE: Maintain blood glucose between 100-180 at all times. Hypoglycemia protocol in place INFECTIOUS DISEASE: Trend temperature, WBC and procalcitonin level Follow cultures, deescalate antibiotics as soon as possible. Panculture if new onset fever ONCOLOGY/HEMATOLOGY/COAGULATION: Monitor for s/s of bleeding Monitor hemoglobin, coagulation studies as needed SKIN: Pressure ulcer prevention per facility protocol Specialty mattress ORTHO/REHAB: Continue PT/OT Prophylaxis: Continue GI and DVT prophylaxis Code Status: Full Resuscitation Disposition: TBD Other: Total patient care time exceeds 35 minutes excluding all procedures. AURELIA DE LA TORRE [facility] Feb 04, 2024 12:22
[2024-02-04] MEDS: CEFTRIAXONE 2GM VIAL IVPB SCH (15:02)
[2024-02-04 16:00] VITALS: BP 143/95; PULSE 85; RESP 20; TEMP 98.9
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
[2024-02-04 18:32] LABS: ABG BASE EXCESS -0.3 mmol/L (-2.0-3.0); ABG HCO3 23.9 mmol/L (21.0-28.0); ABG OXYGEN SATURATION 91.7 % (94.0-98.0); ABG PCO2 38 mmHg (32-45); ABG PH 7.419 (7.350-7.450); DEVICE COMMENT LR; PO2, ARTERIAL BG 60.4 mmHg (83.0-108.0); VENT MODE, BG RA (ROOM AIR)
[2024-02-04 18:55] LABS: ALBUMIN 2.9 g/dL (3.5-5.0); BILIRUBIN,TOTAL 3.1 mg/dL (0.2-1.0); POTASSIUM 3.4 mmol/L (3.5-5.1)
[2024-02-04 20:00] VITALS: BP 173/99; PULSE 82; RESP 20; TEMP 98; O2SAT 98
[2024-02-04] MEDS: PANTOPrazole 40 MG/VIAL IVP SCH (20:09)
[2024-02-04] MEDS: metoCLOPRAmide 10 MG/2 ML VIAL IVP SCH (20:11)
[2024-02-04] MEDS: acetaMINOPHEN 325 MG TAB PO PRN (20:18)
--- NOTE | 2024-02-04 20:24 | HMCIMG ---
CHEST 1VW CLINICAL HISTORY: sob COMPARISON: 09/14/2023 TECHNIQUE: Single view of the chest was obtained. FINDINGS: Lungs are clear. The cardiac size and mediastinum are unremarkable. The bony structures are within normal limits. IMPRESSION: No acute cardiopulmonary process identified.
[2024-02-04] MEDS: LAbetaLOL HCL 200 MG TABLET PO SCH (21:03)
[2024-02-05] VITALS (8 sets, daily range): BP systolic 141–175; BP diastolic 77–110; PULSE 76–89; RESP 16–18; TEMP 98.1–98.7; O2SAT 97–98
[2024-02-05 05:03] LABS: HEMATOCRIT 36.9 % (36-48); MEAN CORPUSCULAR HEMOGLOBIN 29.7 pg (27.0-33.0); MEAN CORPUSCULAR HGB CONC 31.2 g/dL (32.0-36.0); MEAN CORPUSCULAR VOLUME 95.3 fL (79-99); RED BLOOD CELL COUNT(AUTO) 3.87 MIL/uL (4.00-5.50); RED CELL DISTRIBUTION WIDTH 14.9 % (11.0-15.5); WHITE BLOOD COUNT (AUTO) 7.3 K/uL (4.8-10.8)
[2024-02-05 05:25] LABS: ALBUMIN 2.6 g/dL (3.5-5.0); BILIRUBIN,TOTAL 1.8 mg/dL (0.2-1.0); CREATININE 0.9 mg/dL (0.5-1.0); MAGNESIUM 1.6 mg/dL (1.80-2.40); PHOSPHORUS 2.8 mg/dL (2.5-4.9); POTASSIUM 3.5 mmol/L (3.5-5.1); THYROID STIMULATING HORMONE 1.34 uIU/mL (0.36-3.74); TOTAL PROTEIN, SERUM 6.6 g/dL (6.0-8.3)
[2024-02-05] MEDS: LOSARTAN/HYDROCHLOROTHIAZIDE 50-12.5MG TABLET PO SCH (09:53)
[2024-02-05] MEDS: cloNIDine HCL 0.1 MG TABLET PO SCH (09:53)
[2024-02-05] MEDS: mirtAZAPine 15 MG TABLET PO SCH (09:53)
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
[2024-02-05 12:00] LABS: INR 1.11 (0.85-1.15); PROTHROMBIN TIME 12.3 SEC (9.6-11.6)
--- NOTE | 2024-02-05 20:45 | NUR ---
MEDS SHIFT ASSESSMENT DONE, PLEASE REFER TO CHART. DENIES ANY ABDOMINAL PAINS AT THIS TIME. ELEVATED BP AT 153/105 BUT NO UNTOWARD S/SX NOTED. DUE MEDS ADMINISTERED, TOLERATED WELL. KEPT NPO ORDERED. KEPT RESTED AND COMFORTABLE IN BED. CALL LIGHT WITHIN REACH.
[2024-02-05] MEDS: INSULIN humuLIN R 100 UNIT/ML 3ML SQ SCH (23:30)
[2024-02-06] VITALS (9 sets, daily range): BP systolic 147–198; BP diastolic 74–104; PULSE 74–89; RESP 16–18; TEMP 97.9–98.7; O2SAT 97
[2024-02-06] MEDS: hydrALAZine 20MG/ML VIAL IV PRN (05:02)
[2024-02-06 05:50] LABS: ALBUMIN 2.8 g/dL (3.5-5.0); BILIRUBIN,TOTAL 0.6 mg/dL (0.2-1.0); CREATININE 0.7 mg/dL (0.5-1.0); POTASSIUM 3.2 mmol/L (3.5-5.1); TOTAL PROTEIN, SERUM 6.9 g/dL (6.0-8.3)
[2024-02-06] MEDS: INSULIN humuLIN R 100 UNIT/ML 3ML SQ SCH (05:56)
--- NOTE | 2024-02-06 06:08 | NUR ---
DIET PT CLAIMS OF HEADACHE. MEDICATED WITH TYLENOL FOR PAIN. STARTED ON CLEAR LIQUID DIET. INSTRUCTED TO REPORT ANY PAINS AND N/V TO STAFF. TOLERATED WATER FOR NOW. FOR MORE CARE.
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
--- NOTE | 2024-02-06 20:50 | NUR ---
MEDS SHIFT ASSESSMENT DONE, PLEASE REFER TO CHART. DUE MEDS ADMINISTERED, TOLERATED WELL. KEPT RESTED AND COMFORTABLE IN BED. CALL LIGHT WITHIN REACH.
--- NOTE | 2024-02-06 23:00 | NUR ---
BUSINESS DATABASE ANALYST BUSINESS DATABASE ANALYST NIC ON THE FLOOR MAKING ROUNDS. REFERRED PT'S IVF AND MADE AWARE OF PT TOLERATING DIET. NEW ORDERS TO D/C IVF RECEIVED, PLEASE REFER TO CPOE. SALINE LOCKED PT'S PIV.
[2024-02-07] VITALS (7 sets, daily range): BP systolic 134–192; BP diastolic 75–105; PULSE 79–89; RESP 18; TEMP 97.5–98.5
--- NOTE | 2024-02-07 00:30 | NUR ---
BP PT'S BP IS OWINNWRS=328/95 ON RE-CHECK. DENIES ANY PAINS NOR DISCOMFORT AT THIS TIME. MEDICATED WITH HYDRALAZINE IV. WILL RE-ASSESS PT.
--- NOTE | 2024-02-07 01:19 | NUR ---
H/A RE-CHECKED PT'S DT=621/93, HR=89 BPM. PT COMPLAINTS OF HEADACHE. MEDICATED WITH TYLENOL PO. WILL RE-ASSESS PT. KEPT NPO FOR MRCP IN AM.
--- NOTE | 2024-02-07 06:16 | NUR ---
ROUNDS PT SLEPT AT INTERVALS DURING THE SHIFT. NO DISTRESS NOTED. NO COMPLAINTS VERBALIZED. KEPT COMFORTABLE. KEPT NPO FOR MRCP. FOR MORE CARE.
[2024-02-07] MEDS ORDERED: hydroMORPHone 0.5 MG SYG (0.5MG/0.5ML) IVP PRN (09:00)
--- NOTE | 2024-02-07 10:25 | HMCIMG ---
Exam Type: MRI OF THE ABDOMEN WITHOUT CONTRAST and MR cholangiopancreatography Comparison Study: none History: eval for cbd stones PROTOCOL: Examination is done with multiecho multiplanar sequences. ASSET with multiplanar 3-D reconstructions MR cholangiopancreatography sequences are also available for review. MRCP performed customary fashion. 2D axial FIESTA fat-saturated images of abdomen, coronal thick slab MRCP ASSET scan and coronal thin slab MRCP ASSET 3 mm images and maximum intensity projection postprocessing, MIP projected in the customary circumferential and head over heels fashion. FINDINGS: No evidence of nephro or ureterolithiasis is found. No hydronephrosis or ureteral dilatation is seen. The stomach is unremarkable. There is no evidence of gastric dilatation. No blastic thickening is noted to suggest inflammation or tumor. There is no perforation. There is no gastric outlet obstruction. There is no ulceration. The spleen is unremarkable. It is not enlarged. The pancreas shows normal anatomy. It is not fatty replaced. It shows no lesions. The pancreatic duct is not dilated. There is evidence of cholelithiasis. No evidence of acute or chronic inflammation is seen. The common bile duct is prominent at 11 mm. However, no obstructing lesions or choledocholithiasis seen. The adrenal glands are unremarkable. There is no enlargement. No lesions are noted. The liver is unremarkable. It shows no focal masses. The bony and vascular structures are unremarkable for the patient's age. Large right anterior abdominal wall hernia containing multiple large and small bowel loops without incarceration or strangulation. IMPRESSION: There is evidence of cholelithiasis. No evidence of acute or chronic inflammation is seen. The common bile duct is prominent at 11 mm. However, no obstructing lesions or choledocholithiasis seen.
[2024-02-07] MEDS ORDERED: CLON0.1T PO (11:58)
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
--- NOTE | 2024-02-07 16:51 | NUR ---
DISCHARGE INSTRUCTIONS GIVEN TO PATIENT SHE VOICES UNDERSTANDING AND STATES SHE WILL CALL WHEN FAMILY IS HERE TO PICK HER UP. DISCHARGE INSTRUCTIONS REVIEWED BY CHARGE NURSE FELICITY BASILIO .
[2024-02-07] MEDS ORDERED: cloNIDine HCL 0.1 MG TABLET PO SCH (21:00)
[2024-02-08] MEDS ORDERED: NITR-166 PO (06:56)
[2024-02-08] MEDS ORDERED: hydroCHLOROthiazide 25 MG TABLET PO SCH (09:00)
[2024-02-08] MEDS ORDERED: LoSARTan 100 MG TABLET PO SCH (09:00)
== END 2024-02-07 17:00 | disposition home or self-care (01) | DRG 438 ==
LOC: EDH 21:08 → EDHIP 02-04 01:29 → 3DH 02-04 10:30
PROVIDERS: ADMIT Internal Medicine Pulmonary Disease; ATTEND Internal Medicine Pulmonary Disease
DX: K85.90 Acute pancreatitis without necrosis or infection, unspecified (principal); R65.11 Systemic inflammatory response syndrome (SIRS) of non-infectious origin with acute organ dysfunction; N30.00 Acute cystitis without hematuria; Z68.41 Body mass index [BMI] 40.0-44.9, adult; K86.1 Other chronic pancreatitis; K43.9 Ventral hernia without obstruction or gangrene; N18.9 Chronic kidney disease, unspecified; I12.9 Hypertensive chronic kidney disease with stage 1 through stage 4 chronic kidney disease, or unspecified chronic kidney disease; E66.01 Morbid (severe) obesity due to excess calories; Z88.0 Allergy status to penicillin; Z79.899 Other long term (current) drug therapy
CPT/HCPCS: 36415; 36600; 71045; 74176; 74181; 80048; 80053; 80305; 81001; 82803; 82948; 83690; 83735; 84100; 84132; 84443; 84478; 84484; 85025; 85027; 85610; 87086; 87186; 93005; 96374; 96375; 99285; G0378; J0360; J0696; J1171; J2270; J2405; J2470; J2765; J3490; J7030; S8037

== ENCOUNTER 2024-11-09 02:48 | Inpatient (IN) | payer SELFPAY ==
[~2024-11-09] VITALS: Ht 157.5 cm; Wt 108.9 kg
[~2024-11-09 02:48] MED LIST changes: -LEVO750T68 PO; -LOSA100T59 PO; +LOSA1TAB42 PO; -METR-172 PO; +MIRT-72 PO; +NITR-166 PO
--- NOTE | 2024-11-09 02:53 | NUR ---
REPORT TO CAMILLA SOUSA
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
[2024-11-09 03:38] LABS: IMMATURE GRANULOCYTE ABSOLUTE 0.04 K/uL (0-1); NUCLEATED RED BLOOD CELLS 0.0 % (0.0-0.19); PLATELET COUNT (AUTO) 318 K/uL (130-400); RED BLOOD CELL COUNT(AUTO) 5.48 MIL/uL (4.00-5.50); RED CELL DISTRIBUTION WIDTH 13.4 % (11.0-15.5); WHITE BLOOD COUNT (AUTO) 10.7 K/uL (4.8-10.8)
[2024-11-09 03:48] LABS: CREATININE 1.1 mg/dL (0.5-1.0); GLOMERULAR FILTR. RATE CALC 60.0 mL/min (>90); GLUCOSE,RANDOM 199.0 mg/dL (70-105); SODIUM SERUM 138.0 mmol/L (136-145); UREA NITROGEN, BLOOD 13.0 mg/dL (7-18)
[2024-11-09 03:56] LABS: CREATINE KINASE, TOTAL 55.0 U/L (21-232)
--- NOTE | 2024-11-09 04:55 | HMCIMG ---
EXAM: CR Chest, 1 view CLINICAL HISTORY: Chest pain. COMPARISON: Chest radiograph dated 02/04/2024. FINDINGS: Bibasilar airspace disease, likely subsegmental atelectasis or an infectious process. No pleural effusion or pneumothorax. The cardiomediastinal silhouette is within normal limits. No acute osseous abnormality. IMPRESSION: Interval development of bibasilar airspace disease, likely subsegmental atelectasis or an infectious process. /[place]
[2024-11-09 04:57] LABS: ASPARTATE AMINOTRANSFERASE 570.0 U/L (10-37); TOTAL PROTEIN, SERUM 8.4 g/dL (6.0-8.3)
--- NOTE | 2024-11-09 07:56 | HMCIMG ---
EXAM: CT Abdomen and Pelvis without V contrast CLINICAL HISTORY: Abnormal transaminases. Mid sternal pain. Probable cholangitis. TECHNIQUE: Thin collimated axial CT images of the abdomen and pelvis were obtained with sagittal and coronal reformatted images also submitted. CT scan is done according to ALARA (As Low As Reasonably Achievable). CONTRAST: None COMPARISON: None. FINDINGS: Linear subsegmental atelectasis in the lingula and bilateral lower lobes. A lobulated soft tissue 16 mm lesion in the lingula. Scattered coronary artery calcifications. Mitral valve calcification is identified. Mild fatty infiltration of the liver. Subtle hyperdensity within the gallbladder lumen,probable hyperdense sludge. No focal lesion in the liver, adrenal glands, spleen or kidneys. Diffusely edematous pancreas, particularly the pancreatic head and uncinate process, with adjacent fat stranding, is a probable change of acute pancreatitis. No peripancreatic collection. A large ventral hernia measuring 19.2 x 14.1 x 0.8 cm in its anterior-posterior, transverse, and craniocaudal dimensions, containing a portion of the ascending, transverse colon, and the jejunal and ileal loops. Scattered diverticulosis of the descending and sigmoid colon without evidence of diverticulitis. No features of bowel obstruction. The appendix is normal. There is no abnormality within the urinary bladder. Unremarkable reproductive organs. Abdominal and pelvic vessels are patent. No lymphadenopathy. No free fluid. There is no acute osseous abnormality. Degenerative changes in the bilateral sacroiliac, superolateral hip joint, and multilevel degenerative facet arthropathy in the lumbar spine. IMPRESSIONS: Diffusely edematous pancreas, particularly the pancreatic head and uncinate process, with adjacent fat stranding, is a probable change of acute pancreatitis. No peripancreatic collection. Suggest a correlation with serum lipase and amylase levels. A large ventral hernia measuring 19.2 x 14.1 x 0.8 cm in its anterior-posterior, transverse, and craniocaudal dimensions, containing a portion of the ascending, transverse colon, and the jejunal and ileal loops. No features of bowel obstruction. Scattered diverticulosis of the descending and sigmoid colon without evidence of diverticulitis. No evidence of renal or ureteric calculus or hydronephrosis. Subtle hyperdensity in the gallbladder lumen, probable hyperdense sludge. Scattered coronary artery calcifications. Mitral valve calcifications are identified. Linear fibrotic band in the lingula and bilateral lower lobes. A lobulated 16 mm soft tissue lesion in the lingula. Follow-up according to the Fleischner guideline. /[place]
--- NOTE | 2024-11-09 08:00 | EKG ---
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
[2024-11-09 08:22] LABS: ALCOHOL, BLOOD < 3 mg/dL (0-10)
--- NOTE | 2024-11-09 10:27 | NUR ---
SPOKE TO DR HENDERSON IN REGARDS TO NEW CONSULT, SHE STATED SHE "WILL WAIT FOR ULTRASOUND REPORT TO CONFIRM GALLSTONES" PATIENT RESTING IN BED, CALL LIGHT IN REACH
[2024-11-09] MEDS: DEXTROSE 5 % AND 0.9 % NACL 1,000 ML IV SCH (10:34)
[2024-11-09] MEDS: LOSARTAN/HYDROCHLOROTHIAZIDE 50-12.5MG TABLET ONE (11:40)
--- NOTE | 2024-11-09 11:54 | NUR ---
CONTINUED HOME MEDS ORDERED BY DR ROUSE I ADMINISTERED LOSARTAN/HCTZ AND LABATELOL RIGHT NOW TO HELP WITH PATIENTS HYPERTENSION SINCE SHE DID NOT TAKE MEDS THIS MORNING, PATIENT RESTING IN BED, CALL LIGHT IN REACH
--- NOTE | 2024-11-09 12:00 | NUR ---
BP REMAINS ELEVATED Addendum: 11/09/24 at 1515 by MOOSE BATEMAN PT Amended: Links added.
[2024-11-09 13:59] VITALS: TEMP 97.8
--- NOTE | 2024-11-09 13:59 | NUR ---
REPORT GIVEN TO LIDA BASILIO, KARLO SENT UP WITH PATIENT
[2024-11-09 14:00] VITALS: O2SAT 97
--- NOTE | 2024-11-09 14:00 | NUR ---
received er via bed dx pancreatis pain is low ivf patent call bed w/in reach stable cond.
[2024-11-09 14:14] VITALS: BP 179/100; PULSE 106; RESP 20; TEMP 98.5
--- NOTE | 2024-11-09 15:32 | NUR ---
DCP: HOME met with pt who states she lives with her sister Adela Orellana [phone] in their parents home. Pt denies issues affording he home or food. pt is able to complete her ADLS on her own, as well as home management and meal prep. Pt uses no DME or in home care services. PCP is Betty Garibay and uses [facility] for rx needs. Pt will return home at wi Addendum: 11/09/24 at 1537 by MOHSEN ORTIZ Amended: Links added.
[2024-11-09 16:34] VITALS: BP 140/84; PULSE 93; RESP 20; TEMP 98.3
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
--- NOTE | 2024-11-09 19:50 | HMCIMG ---
EXAM: CT Chest Without Intravenous Contrast. CLINICAL HISTORY: 53-year-old female, with history of chest pain. TECHNIQUE: Axial computed tomography images of the chest without intravenous contrast. Dose reduction technique was used including one or more of the following: automated exposure control, adjustment of mA and kV according to patient size, and/or iterative reconstruction. CONTRAST: None COMPARISON: None provided. FINDINGS: LUNGS: Atelectasis is seen at the lung bases. No pulmonary mass. No focal airspace consolidation. PLEURAL SPACES: No pleural effusion. No pneumothorax. HEART AND MEDIASTINUM: No cardiomegaly. No significant pericardial effusion. A small hiatal hernia is present. LYMPH NODES: No lymphadenopathy. CHEST WALL AND UPPER ABDOMEN: Mild degenerative changes are seen in the thoracic spine. The chest wall is unremarkable. The upper abdominal solid organs are unremarkable. BONES: Mild degenerative changes are seen in the thoracic spine. No acute osseous abnormality. IMPRESSION: 1. No acute intra-thoracic abnormality related to the history of chest pain. /[place]
[2024-11-09 20:00] VITALS: BP 131/76; PULSE 88; RESP 17; TEMP 99.2; O2SAT 96
[2024-11-09] MEDS: FAMOTIDINE 20MG VIAL IV SCH (20:15)
[2024-11-09 23:44] VITALS: BP 119/80; PULSE 83; RESP 17; TEMP 98.3
[2024-11-10 03:50] VITALS: BP 122/76; PULSE 78; RESP 17; TEMP 97.6
[2024-11-10 05:48] LABS: IMMATURE GRANULOCYTE ABSOLUTE 0.04 K/uL (0-1); NUCLEATED RED BLOOD CELLS 0.0 % (0.0-0.19); PLATELET COUNT (AUTO) 278 K/uL (130-400); RED BLOOD CELL COUNT(AUTO) 4.34 MIL/uL (4.00-5.50); RED CELL DISTRIBUTION WIDTH 14.1 % (11.0-15.5); WHITE BLOOD COUNT (AUTO) 9.0 K/uL (4.8-10.8)
--- NOTE | 2024-11-10 06:02 | HMCIMG ---
EXAMINATION: ULTRASOUND OF THE ABDOMEN (LIMITED) WITH COLOR DOPPLER. CLINICAL HISTORY: CBD dilatation. COMPARISON: Ultrasound of the abdomen dated 09/14/[address] abdomen and pelvis without contrast from the same day. TECHNIQUE: Real-time grayscale ultrasound images of the abdomen. In addition, color Doppler is medically necessary to perform in order to evaluate vascularity and blood flow. FINDINGS: Liver: Bulky in caliber, the right hepatic lobe measures 17.0 cm in the craniocaudal dimension. There is increased echogenicity of the hepatic parenchyma. There is no focal hepatic abnormality or intrahepatic biliary ductal dilatation. There is normal spectral Doppler of the main portal vein. Gallbladder: Within normal limits with normal wall thickness (0.34 cm). No hyperemia or pericholecystic free fluid. There are calculi, the largest measure 2.0 cm. Common bile duct is dilated measuring 1.15 cm. Pancreas: Normal in caliber and echotexture. No calcification or dilated pancreatic duct. The right kidney is normal in caliber, the right kidney measures 10.9 x 4.0 x 4.9 cm in craniocaudal, AP, and transverse dimensions respectively. There is normal renal cortical thickness, and cortical echogenicity. There is no renal calculus or hydronephrosis. IMPRESSION: Hepatomegaly with hepatic steatosis. Cholelithiasis. No cholecystitis. Dilated common bile duct. Recommend MRCP. /[place]
[2024-11-10 06:25] LABS: ASPARTATE AMINOTRANSFERASE 333.0 U/L (10-37); CREATININE 2.2 mg/dL (0.5-1.0); GLOMERULAR FILTR. RATE CALC 26.0 mL/min (>90); GLUCOSE,RANDOM 109.0 mg/dL (70-105); SODIUM SERUM 141.0 mmol/L (136-145); TOTAL PROTEIN, SERUM 6.5 g/dL (6.0-8.3); UREA NITROGEN, BLOOD 21.0 mg/dL (7-18)
[2024-11-10 08:00] VITALS: BP 141/89; PULSE 74; RESP 18; TEMP 97.5; O2SAT 97
[2024-11-10] MEDS: LOSARTAN/HYDROCHLOROTHIAZIDE 50-12.5MG TABLET PO SCH (08:14)
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
[2024-11-10 12:00] VITALS: BP 170/100; PULSE 78; RESP 20; TEMP 97.8
[2024-11-10 15:47] VITALS: BP 161/97; PULSE 80; RESP 19; TEMP 98
[2024-11-10 20:00] VITALS: BP 174/96; PULSE 85; RESP 20; TEMP 98; O2SAT 97
--- NOTE | 2024-11-10 23:22 | PN ---
INFECTIOUS DISEASE PROGRESS NOTE Date of Service: Nov 10, 2024 SUBJECTIVE: This is a 53-year-old female patient who was admitted for abdominal pain, nausea or vomiting. A CT of the abdomen and pelvis showed pancreatitis and an abdominal ultrasound showed cholelithiasis. Patient is still experiencing abdominal pain and at this time patient is pending a MRCP. If the report is positive with will need GI evaluation. Continue on levofloxacin. PHYSICAL EXAM EYES: Anicteric. Pupils equal and reactive. HENT: No oral thrush seen, moist Oral mucosa. NECK: Supple, no JVD or thyromegaly. LUNGS: Good air entry. No rales, no rhonchi. CARDIOVASCULAR: S1, S2 regular. No murmur heard. ABDOMEN: Soft, bowel sounds present, no organomegaly. Abdominal pain POA. CENTRAL NERVOUS SYSTEM: Awake, alert, oriented x 3. SKIN: No rashes, no swelling. LYMPHATICS: No peripheral lymphadenopathy MUSCULOSKELETAL: No joint swelling, erythema or tenderness. EXTREMITIES: No cyanosis or clubbing. BACK: No deformity, no pressure ulcer. GENITOURINARY: No dysuria or hematuria. Vital Sign (Last 12 Hours) 11/10/24 11/10/24 11/10/24 11/10/24 12:00 12:02 15:47 20:00 Temp 97.9 98.1 98.1 Pulse 78 78 80 85 Resp 20 19 20 B/P (MAP) 170/100 170/100 161/97 174/96 Pulse Ox 96 95 97 O2 Delivery Room Air Room Air Room Air FiO2 21 21 11/10/24 20:52 Pulse 85 B/P (MAP) 174/96 Intake & Output (last 24hrs) 11/09/24 11/09/24 11/10/24 15:00 23:00 07:00 Intake Total 150.0 ml 550.0 ml Balance 150.0 ml 550.0 ml LABS: Laboratory: Test 11/10/24 19:57 11/10/24 05:34 11/09/24 09:17 11/09/24 07:50 Range/Units Whole Blood Glucose 110 70-110 MG/DL White Blood Count 9.0 4.8-10.8 K/uL Red Blood Count 4.34 4.00-5.50 MIL/uL Hemoglobin 12.7 # 12.0-16.0 g/dL Hematocrit 38.5 # 36-48 % Mean Corpuscular Volume 88.7 79-99 fL Mean Corpuscular Hemoglobin 29.3 27.0-33.0 pg Mean Corpuscular Hemoglobin Concent 33.0 32.0-36.0 g/dL Red Cell Distribution Width 14.1 11.0-15.5 % Platelet Count 278 130-400 K/uL Mean Platelet Volume 11.2 H 7.5-10.5 fL Immature Granulocyte % (Auto) 0.4 0-1 % Neutrophils (%) (Auto) 75.1 40.0-77.0 % Lymphocytes (%) (Auto) 15.2 L 21.0-51.0 % Monocytes (%) (Auto) 8.0 3.0-13.0 % Eosinophils (%) (Auto) 1.1 0.0-8.0 % Basophils (%) (Auto) 0.2 0.0-5.0 % Neutrophils # (Auto) 6.7 1.8-7.7 K/uL Lymphocytes # (Auto) 1.4 1.0-4.8 K/uL Monocytes # (Auto) 0.7 0.1-1.0 K/uL Eosinophils # (Auto) 0.10 0.00-0.70 K/uL Basophils # (Auto) 0.02 0.00-0.20 K/uL Absolute Immature Granulocyte (auto 0.04 0-1 K/uL Nucleated Red Blood Cells 0.0 0.0-0.19 % Sodium Level 141 136-145 mmol/L Potassium Level 3.6 3.5-5.1 mmol/L Chloride Level 105 101-111 mmol/L Carbon Dioxide Level 24 21-32 mmol/L Blood Urea Nitrogen 21 H 7-18 mg/dL Creatinine 2.2 H 0.5-1.0 mg/dL Glomerular Filtration Rate Calc 26 >90 mL/min Random Glucose 109 H 70-105 mg/dL Total Calcium 8.2 L 8.5-10.1 mg/dL Magnesium Level 2.10 1.80-2.40 mg/dL Total Bilirubin 2.2 H 0.2-1.0 mg/dL Aspartate Amino Transf (AST/SGOT) 333 H 10-37 U/L Alanine Aminotransferase (ALT/SGPT) 597 H 12-78 U/L Alkaline Phosphatase 198 H 50-136 U/L Total Protein 6.5 6.0-8.3 g/dL Albumin 2.5 L 3.5-5.0 g/dL Lipase 344 H 16-77 U/L Thyroid Stimulating Hormone (TSH) 1.70 # 0.36-3.74 uIU/mL SARS-CoV-2 Antigen (Rapid) PRESUMPTIVE NEGATIVE NEGATIVE Lactic Acid Level 2.0 0.8-2.5 mmol/L Lactate Dehydrogenase 601 H 81-234 U/L Triglycerides Level 89 30-200 mg/dL Salicylates Level < 2.8 L 2.8-20.0 mg/dL Acetaminophen Level < 1 L 10-30 mcg/mL Serum Alcohol < 3 0-10 mg/dL Test 11/09/24 03:30 Range/Units White Cell Morphology Comment See comments Hemoglobin A1c 5.9 4.0-6.0 % Estimated Average Glucose (eAG) 123 70-126 mg/dL Direct Bilirubin 0.8 H 0.0-0.3 mg/dL Total Creatine Kinase 55 21-232 U/L Troponin I High Sensitivity 18.2 4-50 ng/L ASSESSMENT: Biliary pancreatitis. Cholelithiasis. Abdominal pain. Elevated liver enzymes. Acute renal failure. PLAN: Continue levofloxacin IV. Pending a MRCP, if positive patient will need GI evaluation. Continue pain management. We will avoid nephrotoxic medications. We will monitor renal function. Continue GI prophylaxis. This case was reviewed and discussed with my supervising physician Dr. Rouse and the above assessment and plan was formulated and agreed upon. ATTESTATION BY PHYSICIAN I have seen and examined the patient. I reviewed the documentation, medical decision making, and treatment plan as noted by the mid-level provider above. I agree with the findings and plan of care. YVAN ROUSE MD, MIRTA L [employer]WOOD FINISHER Nov 10, 2024 23:22
[2024-11-11] VITALS (7 sets, daily range): BP systolic 141–173; BP diastolic 84–96; PULSE 76–80; RESP 16–18; TEMP 97.5–98.1; O2SAT 95–96
[2024-11-11 01:20] LABS: APPEARANCE,URINE CLEAR (CLEAR); GLUCOSE, URINE (UA) NEGATIVE (NEGATIVE); LEUKOCYTE ESTERASE ,URINE NEGATIVE Leu/uL (NEGATIVE); NITRATE,URINE NEGATIVE (NEGATIVE); OCCULT BLOOD,URINE NEGATIVE (NEGATIVE)
[2024-11-11 01:22] LABS: ADD UA MICROSCOPIC NO
[2024-11-11 01:24] LABS: AMPHET/METH SCREEN,URINE NEGATIVE (NEGATIVE); BARBITURATE SCREEN, URINE NEGATIVE (NEGATIVE); CANNABINOID SCREEN,URINE NEGATIVE (NEGATIVE); COCAINE SCREEN,URINE NEGATIVE (NEGATIVE)
[2024-11-11 12:00] LABS: ASPARTATE AMINOTRANSFERASE 78.0 U/L (10-37); CREATININE 1.4 mg/dL (0.5-1.0); GLOMERULAR FILTR. RATE CALC 45.0 mL/min (>90); GLUCOSE,RANDOM 107.0 mg/dL (70-105); SODIUM SERUM 143.0 mmol/L (136-145); TOTAL PROTEIN, SERUM 7.8 g/dL (6.0-8.3); UREA NITROGEN, BLOOD 18.0 mg/dL (7-18)
[2024-11-11 12:10] LABS: INR 1.08 (0.85-1.15)
[2024-11-11 12:17] LABS: NUCLEATED RED BLOOD CELLS 0.0 % (0.0-0.19); PLATELET COUNT (AUTO) 307.0 K/uL (130-400); RED BLOOD CELL COUNT(AUTO) 5.03 MIL/uL (4.00-5.50); RED CELL DISTRIBUTION WIDTH 14.5 % (11.0-15.5); WHITE BLOOD COUNT (AUTO) 9.5 K/uL (4.8-10.8)
[2024-11-11] MEDS: PoTASSium chl 10% ELIXIR 20MEQ 20 MEQ/15 ML UDCUP PO PRN (13:53)
[2024-11-11] MEDS ORDERED: PoTASSium chloRIDE 20MEQ ER 20 MEQ ERTAB PO PRN (14:00)
--- NOTE | 2024-11-11 15:30 | NUR ---
SPOKE TO ILSA FROM RADIOLOGY IN [place] TO NOTIFY ABOUT DICTATION OF THE PENDING MRCP RESULTS. WILL CONTINUE TO CHECK FOR DICTATED RESULTS.
--- NOTE | 2024-11-11 16:49 | PN ---
This is a 53-year-old female with concerns of possible gallstone pancreatitis Interval history: This 53-year-old female seen in her room resting MRCP performed currently pending results Patient is NPO Abdominal pain improving Lipase down to 63 Physical exam General: Awake alert and oriented Heart: Regular rate and rhythm} Lungs: Clear to auscultation no distress Abdomen: [Soft, nontender, nondistended Assessment : This is a 53-year-old female with concerns for gallstone pancreatitis Plan: At this point in time we will await MRCP findings If concerns for choledocholithiasis noted patient will need ERCP Given patient's previous surgical history patient may not be surgical candidate at this time for cholecystectomy Dr. Vang to be updated in patient's status Nursing report any further acute events Surgical case has been discussed with my supervising physician in the above plan was formulated and agreed upon We appreciate the hospitalist team for us to participate in patient's care. Greater than 45 minutes of time spent patient, reviewing chart, working on documentation Vitals/Labs Vital Signs Date Time Temp Pulse Resp B/P (MAP) Pulse Ox O2 Delivery O2 Flow Rate FiO2 11/11/24 14:39 80 173/96 11/11/24 12:00 97.7 18 100 Room Air 11/11/24 09:12 0 21 Laboratory Tests 11/11/24 11:14 Medications Current Medications Hydralazine HCl 15 mg ONCE ONCE IV Last administered on 11/09/24at 03:36; Start 11/09/24 at 03:30; Stop 11/09/24 at 03:31; Status DC Ondansetron HCl 4 mg ONCE ONCE IVP Last administered on 11/09/24at 04:29; Start 11/09/24 at 04:30; Stop 11/09/24 at 04:31; Status DC Ketorolac Tromethamine 30 mg ONCE ONCE IVP Last administered on 11/09/24at 04:29; Start 11/09/24 at 04:30; Stop 11/09/24 at 04:31; Status DC Morphine Sulfate 4 mg ONCE ONCE IVP Last administered on 11/09/24at 05:24; Start 11/09/24 at 05:30; Stop 11/09/24 at 05:31; Status DC Ondansetron HCl 4 mg ONCE ONCE IVP Last administered on 11/09/24at 05:24; Start 11/09/24 at 05:30; Stop 11/09/24 at 05:31; Status DC Clonidine HCl 0.2 mg ONCE ONCE PO Last administered on 11/09/24at 06:50; Start 11/09/24 at 07:00; Stop 11/09/24 at 07:01; Status DC Acetaminophen 650 mg Q6H PRN PO Last administered on 11/09/24at 12:24; Start 11/09/24 at 09:30; Stop 12/09/24 at 09:29 Famotidine 20 mg Q24H IV Last administered on 11/10/24at 20:52; Start 11/09/24 at 21:00; Stop 12/09/24 at 20:59 Hydralazine HCl 25 mg Q6H PRN PO; Start 11/09/24 at 09:30; Stop 11/11/24 at 14:18; Status DC Docusate Sodium 100 mg BID PRN PO; Start 11/09/24 at 09:30; Stop 12/09/24 at 09:29 Polyethylene Glycol 17 gm DAILY PRN PO; Start 11/09/24 at 09:30; Stop 12/09/24 at 09:29 Insulin Human Regular INSULIN SLIDING SCAL... ACHS SQ; Start 11/09/24 at 11:30; Stop 12/09/24 at 11:29 Morphine Sulfate 4 mg Q4H PRN IVP Last administered on 11/10/24at 20:53; Start 11/09/24 at 10:00; Stop 11/16/24 at 09:59 Acetaminophen 650 mg Q6H PRN PO Last administered on 11/10/24at 11:53; Start 11/09/24 at 10:00; Stop 12/09/24 at 09:59 Ondansetron HCl 4 mg Q6H PRN PO Last administered on 11/10/24at 17:33; Start 11/09/24 at 10:00; Stop 12/09/24 at 09:59 Dextrose/Sodium Chloride 1,000 ml @ 100 mls/hr Q10H IV Last administered on 11/11/24at 02:05; Start 11/09/24 at 10:00; Stop 12/09/24 at 09:59 Hydralazine HCl 10 mg Q8H5 PRN IV Last administered on 11/10/24at 12:02; Start 11/09/24 at 10:00; Stop 11/11/24 at 14:19; Status DC Clonidine HCl 0.1 mg BID PO Last administered on 11/11/24at 09:09; Start 11/09/24 at 21:00; Stop 12/09/24 at 20:59 Labetalol HCl 200 mg BID PO Last administered on 11/11/24at 09:09; Start 11/09/24 at 21:00; Stop 12/09/24 at 20:59 HCTZ/Losartan Potassium 2 tab DAILY PO Last administered on 11/11/24at 09:08; Start 11/10/24 at 09:00; Stop 12/10/24 at 08:59 Labetalol HCl 200 mg STK-MED ONCE .ROUTE Last administered on 11/09/24at 11:34; Start 11/09/24 at 11:32; Stop 11/09/24 at 11:32; Status DC HCTZ/Losartan Potassium 1 tab STK-MED ONCE .ROUTE Last administered on 11/09/24at 11:40; Start 11/09/24 at 11:38; Stop 11/09/24 at 11:39; Status DC Levofloxacin/ Dextrose 750 mg Q24H IV Last administered on 11/09/24at 20:17; Start 11/09/24 at 19:00; Stop 11/10/24 at 08:16; Status DC Levofloxacin/ Dextrose 750 mg Q48H IV; Start 11/11/24 at 20:00; Stop 11/19/24 at 18:59 Potassium Chloride 100 ml @ 100 mls/hr AD PRN IV; Start 11/11/24 at 13:00; Stop 11/11/24 at 13:42; Status DC Potassium Chloride 100 ml @ 100 mls/hr AD PRN IV; Start 11/11/24 at 14:00; Stop 12/11/24 at 13:59 Potassium Chloride 10 meq AD PRN PO Last administered on 11/11/24at 13:53; Start 11/11/24 at 14:00; Stop 12/11/24 at 13:59 Potassium Chloride 10 meq AD PRN PO; Start 11/11/24 at 14:00; Stop 11/11/24 at 14:19; Status DC Hydralazine HCl 50 mg Q8H6 PRN PO Last administered on 11/11/24at 14:39; Start 11/11/24 at 14:30; Stop 12/11/24 at 14:29 Potassium Chloride 10 meq AD PRN PO; Start 11/11/24 at 14:30; Stop 12/11/24 at 13:59 ARMINDA BRIDGES Jr. Nov 11, 2024 16:49
--- NOTE | 2024-11-11 17:21 | PN ---
INFECTIOUS DISEASE PROGRESS NOTE Date of Service: Nov 11, 2024 SUBJECTIVE: This is a 53-year-old female patient who was seen and examined at bedside in room 416. Patient is awake, alert and oriented x3. Patient continues with some abdominal pain. The lipase trended down to 148 and the liver enzymes have improved. Patient had a MRCP done today and pending interpretation. We will obtain GI consult if the MRCP is positive. No reports of nausea or vomiting. We will continue on levofloxacin IV for now. PHYSICAL EXAM EYES: Anicteric. Pupils equal and reactive. HENT: No oral thrush seen, moist Oral mucosa. NECK: Supple, no JVD or thyromegaly. LUNGS: Good air entry. No rales, no rhonchi. CARDIOVASCULAR: S1, S2 regular. No murmur heard. ABDOMEN: Soft, bowel sounds present, no organomegaly. Abdominal pain POA. CENTRAL NERVOUS SYSTEM: Awake, alert, oriented x 3. SKIN: No rashes, no swelling. LYMPHATICS: No peripheral lymphadenopathy MUSCULOSKELETAL: No joint swelling, erythema or tenderness. EXTREMITIES: No cyanosis or clubbing. BACK: No deformity, no pressure ulcer. GENITOURINARY: No dysuria or hematuria. Vital Sign (Last 12 Hours) 11/11/24 11/11/24 11/11/24 11/11/24 08:00 09:09 09:12 12:00 Temp 97.5 97.7 Pulse 76 76 80 Resp 16 18 B/P (MAP) 161/94 161/94 173/96 Pulse Ox 96 96 100 O2 Delivery Room Air Room Air* Room Air O2 Flow Rate 0 FiO2 21 11/11/24 11/11/24 14:39 16:00 Temp 97.9 Pulse 80 78 Resp 17 B/P (MAP) 173/96 155/93 Pulse Ox 99 O2 Delivery Room Air Intake & Output (last 24hrs) 11/10/24 11/10/24 11/11/24 15:00 23:00 07:00 Intake Total 800.0 ml Output Total 100 ml Balance -100 ml 800.0 ml LABS: Laboratory: Test 11/11/24 15:11 11/11/24 11:14 11/11/24 00:55 11/10/24 05:34 Range/Units Whole Blood Glucose 90 70-110 MG/DL White Blood Count 9.5 4.8-10.8 K/uL Red Blood Count 5.03 4.00-5.50 MIL/uL Hemoglobin 14.8 12.0-16.0 g/dL Hematocrit 45.8 36-48 % Mean Corpuscular Volume 91.1 79-99 fL Mean Corpuscular Hemoglobin 29.4 27.0-33.0 pg Mean Corpuscular Hemoglobin Concent 32.3 32.0-36.0 g/dL Red Cell Distribution Width 14.5 11.0-15.5 % Platelet Count 307 130-400 K/uL Mean Platelet Volume 11.8 H 7.5-10.5 fL Nucleated Red Blood Cells 0.0 0.0-0.19 % Prothrombin Time 11.4 9.6-11.6 SEC Prothromb Time International Ratio 1.08 0.85-1.15 Activated Partial Thromboplast Time 29.9 26.3-35.5 SEC Sodium Level 143 136-145 mmol/L Potassium Level 3.3 L 3.5-5.1 mmol/L Chloride Level 105 101-111 mmol/L Carbon Dioxide Level 25 21-32 mmol/L Blood Urea Nitrogen 18 7-18 mg/dL Creatinine 1.4 H 0.5-1.0 mg/dL Glomerular Filtration Rate Calc 45 >90 mL/min Random Glucose 107 H 70-105 mg/dL Total Calcium 8.9 8.5-10.1 mg/dL Magnesium Level 2.10 1.80-2.40 mg/dL Total Bilirubin 0.6 0.2-1.0 mg/dL Aspartate Amino Transf (AST/SGOT) 78 H 10-37 U/L Alanine Aminotransferase (ALT/SGPT) 379 H 12-78 U/L Alkaline Phosphatase 194 H 50-136 U/L Total Protein 7.8 6.0-8.3 g/dL Albumin 3.0 L 3.5-5.0 g/dL Amylase Level 148 H 25-115 U/L Lipase 63 16-77 U/L Urine Color LIGHT-YELLOW YELLOW Urine Appearance CLEAR CLEAR Urine pH 5.0 5.0-8.0 Urine Specific [place] 1.010 1.001-1.031 Urine Protein NEGATIVE NEGATIVE mg/dL Urine Glucose (UA) NEGATIVE NEGATIVE mg/dL Urine Ketones NEGATIVE NEGATIVE mg/dL Urine Occult Blood NEGATIVE NEGATIVE Urine Nitrate NEGATIVE NEGATIVE Urine Bilirubin NEGATIVE NEGATIVE mg/dL Urine Urobilinogen 0.2 0.2-1.0 mg/dL Urine Leukocyte Esterase NEGATIVE NEGATIVE Norma/uL Urine Opiates Screen POSITIVE H NEGATIVE Urine Barbiturates Screen NEGATIVE NEGATIVE Urine Phencyclidine Screen NEGATIVE NEGATIVE Urine Amphetamines Screen NEGATIVE NEGATIVE Urine Benzodiazepines Screen NEGATIVE NEGATIVE Urine Cocaine Screen NEGATIVE NEGATIVE Urine Marijuana (THC) Screen NEGATIVE NEGATIVE Immature Granulocyte % (Auto) 0.4 0-1 % Neutrophils (%) (Auto) 75.1 40.0-77.0 % Lymphocytes (%) (Auto) 15.2 L 21.0-51.0 % Monocytes (%) (Auto) 8.0 3.0-13.0 % Eosinophils (%) (Auto) 1.1 0.0-8.0 % Basophils (%) (Auto) 0.2 0.0-5.0 % Neutrophils # (Auto) 6.7 1.8-7.7 K/uL Lymphocytes # (Auto) 1.4 1.0-4.8 K/uL Monocytes # (Auto) 0.7 0.1-1.0 K/uL Eosinophils # (Auto) 0.10 0.00-0.70 K/uL Basophils # (Auto) 0.02 0.00-0.20 K/uL Absolute Immature Granulocyte (auto 0.04 0-1 K/uL Thyroid Stimulating Hormone (TSH) 1.70 # 0.36-3.74 uIU/mL ASSESSMENT: Biliary pancreatitis. Cholelithiasis. Abdominal pain. Elevated liver enzymes. Acute renal failure, improved. PLAN: Continue levofloxacin IV. Continue GI prophylaxis. Pending a MRCP interpretation, if positive patient will need GI evaluation. Continue pain management. We will avoid nephrotoxic medications. We will monitor renal function. This case was reviewed and discussed with my supervising physician Dr. Rouse and the above assessment and plan was formulated and agreed upon. ATTESTATION BY PHYSICIAN I have seen and examined the patient. I reviewed the documentation, medical decision making, and treatment plan as noted by the mid-level provider above. I agree with the findings and plan of care. YVAN ROUSE MD, MIRTA L [facility] Nov 11, 2024 17:21
--- NOTE | 2024-11-11 19:51 | NUR ---
WOUND CARE RINSED WITH NS. TOOK PIC. PAT DRY AND APPLIED 4X4 GAUZE. PT TOLERATED WELL.
[2024-11-12] VITALS (9 sets, daily range): BP systolic 151–186; BP diastolic 85–107; PULSE 68–77; RESP 16–18; TEMP 97.6–98.2; O2SAT 94–98
[2024-11-12] MEDS: PoTASSium chloRIDE 10MEQ SR 10 MEQ/TAB TAB.SR.24H PO PRN (01:33)
[2024-11-12 04:33] LABS: NUCLEATED RED BLOOD CELLS 0.0 % (0.0-0.19); PLATELET COUNT (AUTO) 301.0 K/uL (130-400); RED BLOOD CELL COUNT(AUTO) 4.37 MIL/uL (4.00-5.50); RED CELL DISTRIBUTION WIDTH 14.2 % (11.0-15.5); WHITE BLOOD COUNT (AUTO) 10.0 K/uL (4.8-10.8)
[2024-11-12 04:48] LABS: ASPARTATE AMINOTRANSFERASE 43.0 U/L (10-37); CREATININE 1.1 mg/dL (0.5-1.0); GLOMERULAR FILTR. RATE CALC 60.0 mL/min (>90); GLUCOSE,RANDOM 98.0 mg/dL (70-105); SODIUM SERUM 142.0 mmol/L (136-145); TOTAL PROTEIN, SERUM 7.1 g/dL (6.0-8.3); UREA NITROGEN, BLOOD 15.0 mg/dL (7-18)
--- NOTE | 2024-11-12 07:56 | HMCIMG ---
EXAMINATION: MR Cholangiopancreatography TECHNIQUE: Multiplanar images were obtained without intravenous contrast, utilizing a series of customized pulse sequences. CLINICAL HISTORY: Choledocholithiasis COMPARISON: CT abdomen and pelvis dated 11/09/2024. FINDINGS: Liver Enlarged in size measuring 20.4 cm. Minimal perihepatic fluid Gallbladder and biliary system: Multiple intraluminal calculi in the gallbladder , largest measuring 1.2 cm. No evidence of gallbladder wall thickening. Gross dilatation of the common bile duct (measuring 1.7 cm), common hepatic duct, right and left hepatic ducts and intrahepatic biliary radicals with abrupt tapering of the distal common bile duct at the level of the ampulla. No evidence of calculus in the biliary system. Pancreas Peripancreatic fat stranding along the head and uncinate process of the pancreas. Spleen Normal in size and configuration. Adrenals Normal bilaterally. No masses. Kidneys Bilateral minimal perinephric fluid .No evidence of stone, hydronephrosis, mass or significant cyst. Retroperitoneum No mass or lymphadenopathy. Aorta The visualized abdominal aorta is normal in size and configuration. No stenosis or aneurysm. Bowel/mesentery Normal. No evidence of bowel dilatation or wall thickening. No fluid (free or loculated), mesenteric stranding or lymphadenopathy. Abdominal wall Large ventral hernia on the right side of the anterior abdominal wall measuring 12.1 cm defect with herniation of large bowel, small bowel pain omental fat. Bones Normal. IMPRESSION: Cholelithiasis. Gross dilatation of the common bile duct, common hepatic duct, right and left hepatic ducts and intrahepatic biliary radicals with abrupt tapering of the distal common bile duct at the level of the ampulla. No ductal stones identified. Likely secondary to distal common bile duct stricture. Suggested ERCP correlation, if clinically indicated. Peripancreatic fat stranding along the head and uncinate process of the pancreas. Suggested serum amylase/lipase correlation to rule out pancreatitis. Hepatomegaly with minimal perihepatic fluid. /[place]
--- NOTE | 2024-11-12 16:02 | PN ---
This is a 53-year-old female with concerns for gallstone pancreatitis Interval history: This 53-year-old female seen in her room resting Patient tolerating clear liquids MRCP findings concerning for gross dilatation of the common bile duct with the common hepatic duct and right and left hepatic ducts and intrahepatic biliary radicles with the abrupt tapering of the distal common bile duct the level of the ampulla. No ductal stones noted but recommendations for ERCP noted Lipase has trended down to 58 LFTs slightly Physical exam General: Awake alert and oriented Heart: Regular rate and rhythm} Lungs: Clear to auscultation no distress Abdomen: [Soft, nontender, nondistended Assessment : This is a 53-year-old female with concerns for gallstone pancreatitis Plan: At this point in time we will await GI recommendations and potential ERCP No immediate plans for surgical intervention Dr. Vang to be updated in patient's status and nursing to report any further acute events Surgical case has been discussed with my supervising physician in the above plan was formulated and agreed upon We appreciate the hospitalist team for us to participate in patient's care. Greater than 45 minutes of time spent patient, reviewing chart, working on documentation Vitals/Labs Vital Signs Date Time Temp Pulse Resp B/P (MAP) Pulse Ox O2 Delivery O2 Flow Rate FiO2 11/12/24 12:31 68 174/101 11/12/24 12:00 97.9 18 96 Room Air 11/12/24 08:33 0 21 Laboratory Tests 11/12/24 04:12 Medications Current Medications Hydralazine HCl 15 mg ONCE ONCE IV Last administered on 11/09/24at 03:36; Start 11/09/24 at 03:30; Stop 11/09/24 at 03:31; Status DC Ondansetron HCl 4 mg ONCE ONCE IVP Last administered on 11/09/24at 04:29; Start 11/09/24 at 04:30; Stop 11/09/24 at 04:31; Status DC Ketorolac Tromethamine 30 mg ONCE ONCE IVP Last administered on 11/09/24at 04:29; Start 11/09/24 at 04:30; Stop 11/09/24 at 04:31; Status DC Morphine Sulfate 4 mg ONCE ONCE IVP Last administered on 11/09/24at 05:24; Start 11/09/24 at 05:30; Stop 11/09/24 at 05:31; Status DC Ondansetron HCl 4 mg ONCE ONCE IVP Last administered on 11/09/24at 05:24; Start 11/09/24 at 05:30; Stop 11/09/24 at 05:31; Status DC Clonidine HCl 0.2 mg ONCE ONCE PO Last administered on 11/09/24at 06:50; Start 11/09/24 at 07:00; Stop 11/09/24 at 07:01; Status DC Acetaminophen 650 mg Q6H PRN PO Last administered on 11/11/24at 23:31; Start 11/09/24 at 09:30; Stop 12/09/24 at 09:29 Famotidine 20 mg Q24H IV Last administered on 11/11/24at 21:44; Start 11/09/24 at 21:00; Stop 12/09/24 at 20:59 Hydralazine HCl 25 mg Q6H PRN PO; Start 11/09/24 at 09:30; Stop 11/11/24 at 14:18; Status DC Docusate Sodium 100 mg BID PRN PO; Start 11/09/24 at 09:30; Stop 12/09/24 at 09:29 Polyethylene Glycol 17 gm DAILY PRN PO; Start 11/09/24 at 09:30; Stop 12/09/24 at 09:29 Insulin Human Regular INSULIN SLIDING SCAL... ACHS SQ; Start 11/09/24 at 11:30; Stop 12/09/24 at 11:29 Morphine Sulfate 4 mg Q4H PRN IVP Last administered on 11/12/24at 00:16; Start 11/09/24 at 10:00; Stop 11/16/24 at 09:59 Acetaminophen 650 mg Q6H PRN PO Last administered on 11/10/24at 11:53; Start 11/09/24 at 10:00; Stop 12/09/24 at 09:59 Ondansetron HCl 4 mg Q6H PRN PO Last administered on 11/10/24at 17:33; Start 11/09/24 at 10:00; Stop 12/09/24 at 09:59 Dextrose/Sodium Chloride 1,000 ml @ 100 mls/hr Q10H IV Last administered on 11/12/24at 04:14; Start 11/09/24 at 10:00; Stop 12/09/24 at 09:59 Hydralazine HCl 10 mg Q8H5 PRN IV Last administered on 11/10/24at 12:02; Start 11/09/24 at 10:00; Stop 11/11/24 at 14:19; Status DC Clonidine HCl 0.1 mg BID PO Last administered on 11/12/24at 08:29; Start 11/09/24 at 21:00; Stop 12/09/24 at 20:59 Labetalol HCl 200 mg BID PO Last administered on 11/12/24at 08:28; Start 11/09/24 at 21:00; Stop 12/09/24 at 20:59 HCTZ/Losartan Potassium 2 tab DAILY PO Last administered on 11/12/24at 08:28; Start 11/10/24 at 09:00; Stop 12/10/24 at 08:59 Labetalol HCl 200 mg STK-MED ONCE .ROUTE Last administered on 11/09/24at 11:34; Start 11/09/24 at 11:32; Stop 11/09/24 at 11:32; Status DC HCTZ/Losartan Potassium 1 tab STK-MED ONCE .ROUTE Last administered on 11/09/24at 11:40; Start 11/09/24 at 11:38; Stop 11/09/24 at 11:39; Status DC Levofloxacin/ Dextrose 750 mg Q24H IV Last administered on 11/09/24at 20:17; Start 11/09/24 at 19:00; Stop 11/10/24 at 08:16; Status DC Levofloxacin/ Dextrose 750 mg Q48H IV Last administered on 11/11/24at 21:45; Start 11/11/24 at 20:00; Stop 11/19/24 at 18:59 Potassium Chloride 100 ml @ 100 mls/hr AD PRN IV; Start 11/11/24 at 13:00; Stop 11/11/24 at 13:42; Status DC Potassium Chloride 100 ml @ 100 mls/hr AD PRN IV; Start 11/11/24 at 14:00; Stop 12/11/24 at 13:59 Potassium Chloride 10 meq AD PRN PO Last administered on 11/11/24at 16:54; Start 11/11/24 at 14:00; Stop 12/11/24 at 13:59 Potassium Chloride 10 meq AD PRN PO; Start 11/11/24 at 14:00; Stop 11/11/24 at 14:19; Status DC Hydralazine HCl 50 mg Q8H6 PRN PO Last administered on 11/12/24at 12:31; Start 11/11/24 at 14:30; Stop 12/11/24 at 14:29 Potassium Chloride 10 meq AD PRN PO Last administered on 11/12/24at 08:28; Start 11/11/24 at 14:30; Stop 12/11/24 at 13:59 ARMINDA BRIDGES Jr. Nov 12, 2024 16:02
--- NOTE | 2024-11-12 17:55 | PN ---
INFECTIOUS DISEASE PROGRESS NOTE Date of Service: Nov 12, 2024 SUBJECTIVE: This is a 53-year-old female patient who was seen and examined at bedside in room 416. Patient is awake, alert and oriented x3. The MRCP showed Cholelithiasis with gross dilatation of the CBD and hepatic ducts , likely common bile duct stricture. We will obtain GI consult for positive ERCP. Patient was updated with these findings and current plan. Continue with some abdominal pain but no vomiting. We will continue on levofloxacin IV. No fever, temperature is 97.9 and the renal function continue to improve, BUN is 15 and creatinine of 1.1. PHYSICAL EXAM EYES: Anicteric. Pupils equal and reactive. HENT: No oral thrush seen, moist Oral mucosa. NECK: Supple, no JVD or thyromegaly. LUNGS: Good air entry. No rales, no rhonchi. CARDIOVASCULAR: S1, S2 regular. No murmur heard. ABDOMEN: Soft, bowel sounds present, no organomegaly. Abdominal pain POA. CENTRAL NERVOUS SYSTEM: Awake, alert, oriented x 3. SKIN: No rashes, no swelling. LYMPHATICS: No peripheral lymphadenopathy MUSCULOSKELETAL: No joint swelling, erythema or tenderness. EXTREMITIES: No cyanosis or clubbing. BACK: No deformity, no pressure ulcer. GENITOURINARY: No dysuria or hematuria. Vital Sign (Last 12 Hours) 11/12/24 11/12/24 11/12/24 11/12/24 08:00 08:29 08:33 12:00 Temp 97.5 97.9 Pulse 69 69 68 Resp 17 18 B/P (MAP) 170/99 170/99 174/107 Pulse Ox 98 98 96 O2 Delivery Room Air Room Air* Room Air O2 Flow Rate 0 FiO2 21 11/12/24 11/12/24 12:31 16:00 Temp 97.7 Pulse 68 70 Resp 18 B/P (MAP) 174/101 183/97 Pulse Ox 97 O2 Delivery Room Air Intake & Output (last 24hrs) 11/11/24 11/11/24 11/12/24 15:00 23:00 07:00 Intake Total 20 ml 2040.0 ml Balance 20 ml 2040.0 ml LABS: Laboratory: Test 11/12/24 15:56 11/12/24 04:12 11/11/24 11:14 11/11/24 00:55 Range/Units Whole Blood Glucose 97 70-110 MG/DL White Blood Count 10.0 4.8-10.8 K/uL Red Blood Count 4.37 4.00-5.50 MIL/uL Hemoglobin 12.7 12.0-16.0 g/dL Hematocrit 40.5 36-48 % Mean Corpuscular Volume 92.7 79-99 fL Mean Corpuscular Hemoglobin 29.1 27.0-33.0 pg Mean Corpuscular Hemoglobin Concent 31.4 L 32.0-36.0 g/dL Red Cell Distribution Width 14.2 11.0-15.5 % Platelet Count 301 130-400 K/uL Mean Platelet Volume 11.0 H 7.5-10.5 fL Nucleated Red Blood Cells 0.0 0.0-0.19 % Sodium Level 142 136-145 mmol/L Potassium Level 3.3 L 3.5-5.1 mmol/L Chloride Level 104 101-111 mmol/L Carbon Dioxide Level 29 21-32 mmol/L Blood Urea Nitrogen 15 7-18 mg/dL Creatinine 1.1 H 0.5-1.0 mg/dL Glomerular Filtration Rate Calc 60 >90 mL/min Random Glucose 98 70-105 mg/dL Total Calcium 8.6 8.5-10.1 mg/dL Magnesium Level 1.80 1.80-2.40 mg/dL Total Bilirubin 0.6 0.2-1.0 mg/dL Aspartate Amino Transf (AST/SGOT) 43 H 10-37 U/L Alanine Aminotransferase (ALT/SGPT) 251 #H 12-78 U/L Alkaline Phosphatase 151 H 50-136 U/L Total Protein 7.1 6.0-8.3 g/dL Albumin 2.6 L 3.5-5.0 g/dL Amylase Level 118 #H 25-115 U/L Lipase 58 16-77 U/L Prothrombin Time 11.4 9.6-11.6 SEC Prothromb Time International Ratio 1.08 0.85-1.15 Activated Partial Thromboplast Time 29.9 26.3-35.5 SEC Urine Color LIGHT-YELLOW YELLOW Urine Appearance CLEAR CLEAR Urine pH 5.0 5.0-8.0 Urine Specific [place] 1.010 1.001-1.031 Urine Protein NEGATIVE NEGATIVE mg/dL Urine Glucose (UA) NEGATIVE NEGATIVE mg/dL Urine Ketones NEGATIVE NEGATIVE mg/dL Urine Occult Blood NEGATIVE NEGATIVE Urine Nitrate NEGATIVE NEGATIVE Urine Bilirubin NEGATIVE NEGATIVE mg/dL Urine Urobilinogen 0.2 0.2-1.0 mg/dL Urine Leukocyte Esterase NEGATIVE NEGATIVE Norma/uL Urine Opiates Screen POSITIVE H NEGATIVE Urine Barbiturates Screen NEGATIVE NEGATIVE Urine Phencyclidine Screen NEGATIVE NEGATIVE Urine Amphetamines Screen NEGATIVE NEGATIVE Urine Benzodiazepines Screen NEGATIVE NEGATIVE Urine Cocaine Screen NEGATIVE NEGATIVE Urine Marijuana (THC) Screen NEGATIVE NEGATIVE ASSESSMENT: Biliary pancreatitis. Cholelithiasis with gross dilatation of the CBD and hepatic ducts. Possible common bile duct stricture. Abdominal pain. Elevated liver enzymes. Acute renal failure, improving. PLAN: Obtain GI consult for evaluation. Continue levofloxacin IV. Continue GI prophylaxis. Continue pain management. Avoid nephrotoxic medications. Monitor renal function. This case was reviewed and discussed with my supervising physician Dr. Rouse and the above assessment and plan was formulated and agreed upon. ATTESTATION BY PHYSICIAN I have seen and examined the patient. I reviewed the documentation, medical decision making, and treatment plan as noted by the mid-level provider above. I agree with the findings and plan of care. YVAN ROUSE MD, MIRTA L [facility] Nov 12, 2024 17:55
[2024-11-13] VITALS (25 sets, daily range): BP systolic 121–179; BP diastolic 65–108; PULSE 74–85; RESP 16–23; TEMP 97.4–98.1; O2SAT 93–96
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
[2024-11-13 05:08] LABS: NUCLEATED RED BLOOD CELLS 0.0 % (0.0-0.19); PLATELET COUNT (AUTO) 294.0 K/uL (130-400); RED BLOOD CELL COUNT(AUTO) 4.48 MIL/uL (4.00-5.50); RED CELL DISTRIBUTION WIDTH 13.9 % (11.0-15.5); WHITE BLOOD COUNT (AUTO) 11.1 K/uL (4.8-10.8)
[2024-11-13 05:37] LABS: ASPARTATE AMINOTRANSFERASE 20.0 U/L (10-37); CREATININE 0.9 mg/dL (0.5-1.0); GLOMERULAR FILTR. RATE CALC 76.0 mL/min (>90); GLUCOSE,RANDOM 109.0 mg/dL (70-105); SODIUM SERUM 141.0 mmol/L (136-145); TOTAL PROTEIN, SERUM 7.2 g/dL (6.0-8.3); UREA NITROGEN, BLOOD 10.0 mg/dL (7-18)
[2024-11-13] MEDS ORDERED: IOHEXOL-350 50ML VIAL IV ONE (10:33)
--- NOTE | 2024-11-13 12:24 | NUR ---
PHYSICIAN ORDER PATIENT WITH BLOOD PRESSURE OF 175/105, PRN HYDRALAZINE WAS ADMINISTERED. B/P RECHECK 179/108. DR. ROUSE ON UNIT, PER MD ORDER HYDRALAZINE IV PUSH 10 MG Q6H FOR SYSTOLIC GREATER THAN 150. IV HYDRALAZINE ADMINISTERED. B/P RECHECK AT 1300 152/90.
--- NOTE | 2024-11-13 14:30 | NUR ---
PATIENT OFF UNIT FOR PROCEDURE.
[2024-11-13] MEDS ORDERED: MIDAZOLAM HCL 1 MG/ML 2ML VIAL ONE (14:57)
[2024-11-13] MEDS ORDERED: LIDOCAINE PF 100MG/5ML (2%) SYRINGE 5ML ONE (14:57)
[2024-11-13] MEDS ORDERED: SUCCINYLCHOLINE CHLORIDE 20 MG/ML 10 ML VIAL ONE (14:58)
[2024-11-13] MEDS: INDOMETHACIN 100 MG SUPP.RECT RC ONE (16:01)
--- NOTE | 2024-11-13 16:35 | NUR ---
NURSING OBSERVATION PATIENT OFF UNIT UNABLE TO ASSESS Addendum: 11/13/24 at 1636 by UMM MELENDEZ RN RN Amended: Links added.
--- NOTE | 2024-11-13 16:50 | NUR ---
PATIENT REPORT RECEIVED REPORT FROM EZIO IN PACU. ERCP WITH DR. MARIE. PATIENT WAS GIVEN 10 MG OF LABETOLOL FOR B/P OF 164/101. PATIENT TO START A FULL LIQUID DIET. STENT PLACED IN COMMON BILE DUCT, BILIARY PAPILLARY STENOSIS BENIGN. PATIENT TO F/U WITH DR. MARIE IN 2 WEEKS.
--- NOTE | 2024-11-13 20:56 | NUR ---
nursing notes Levaquin IV not given, dose given at Endoscopy, s/p ERCP with , as per reported by Peg day shift nurse.
--- NOTE | 2024-11-13 22:00 | PN ---
INFECTIOUS DISEASE PROGRESS NOTE Date of Service: Nov 13, 2024 SUBJECTIVE: This is a 53-year-old female patient who was seen and examined at bedside in room 416. Patient is awake, alert and oriented x3. GI has evaluated patient and is scheduled for an ERCP for today. Liver enzymes continue to improve. No reports of nausea or vomiting. We will continue on levofloxacin IV. No other issues reported by nursing. PHYSICAL EXAM EYES: Anicteric. Pupils equal and reactive. HENT: No oral thrush seen, moist Oral mucosa. NECK: Supple, no JVD or thyromegaly. LUNGS: Good air entry. No rales, no rhonchi. CARDIOVASCULAR: S1, S2 regular. No murmur heard. ABDOMEN: Soft, bowel sounds present, no organomegaly. Abdominal pain POA. CENTRAL NERVOUS SYSTEM: Awake, alert, oriented x 3. SKIN: No rashes, no swelling. LYMPHATICS: No peripheral lymphadenopathy MUSCULOSKELETAL: No joint swelling, erythema or tenderness. EXTREMITIES: No cyanosis or clubbing. BACK: No deformity, no pressure ulcer. GENITOURINARY: No dysuria or hematuria. Vital Sign (Last 12 Hours) 11/13/24 11/13/24 11/13/24 11/13/24 10:53 11:31 12:22 12:42 Temp 97.7 Pulse 75 Resp 18 B/P (MAP) 175/105 175/105 179/108 179/108 Pulse Ox 93 O2 Delivery Room Air 11/13/24 11/13/24 11/13/24 11/13/24 15:07 15:07 16:00 16:05 Temp 97.5 Pulse 83 82 Resp 22 21 B/P (MAP) 124/66 121/65 Pulse Ox 99 99 O2 Delivery ET 7.0 Nonrebreathing Mask Nonrebreathing Mask O2 Flow Rate 7.0 10.0 10.0 11/13/24 11/13/24 11/13/24 11/13/24 16:10 16:15 16:20 16:25 Pulse 82 82 81 78 Resp 22 23 22 23 B/P (MAP) 124/66 137/79 144/87 156/88 Pulse Ox 99 99 99 99 O2 Delivery Nonrebreathing Mask Nonrebreathing Mask Nonrebreathing Mask Nonre breathing Mask O2 Flow Rate 10.0 10.0 10.0 10.0 10/05/0511/13/24 11/13/24 11/13/24 16:30 16:35 16:40 16:40 Pulse 76 74 78 75 Resp 21 23 22 B/P (MAP) 162/90 168/95 164/101 164/101 Pulse Ox 99 100 100 O2 Delivery Nonrebreathing Mask Nonrebreathing Mask Nonrebreathing Mask O2 Flow Rate 10.0 11/13/24 11/13/24 11/13/24 11/13/24 16:45 16:50 17:00 17:10 Temp 97.3 97.7 Pulse 76 77 77 78 Resp 22 23 22 16 B/P (MAP) 163/90 155/87 152/88 154/85 Pulse Ox 96 95 95 94 O2 Delivery Room Air Room Air Room Air Room Air 11/13/24 11/13/24 11/13/24 11/13/24 17:25 17:40 17:55 18:25 Pulse 83 81 79 84 Resp 16 16 16 16 B/P (MAP) 150/96 144/79 171/100 172/92 Pulse Ox 97 96 97 97 O2 Delivery Room Air Room Air Room Air Room Air 11/13/24 11/13/24 19:55 21:08 Temp 97.7 Pulse 82 83 Resp 17 B/P (MAP) 170/85 172/102 Pulse Ox 96 O2 Delivery Room Air Intake & Output (last 24hrs) 11/12/24 11/12/24 11/13/24 15:00 23:00 07:00 Intake Total 1401.0 ml 1620.0 ml Output Total 950 ml Balance 451.0 ml 1620.0 ml LABS: Laboratory: Test 11/13/24 19:45 11/13/24 10:56 11/13/24 04:50 Range/Units Whole Blood Glucose 87 70-110 MG/DL Bedside Glucose Comment Notified Nurse Urine HCG, Qualitative NEGATIVE NEGATIVE White Blood Count 11.1 H 4.8-10.8 K/uL Red Blood Count 4.48 4.00-5.50 MIL/uL Hemoglobin 13.3 12.0-16.0 g/dL Hematocrit 39.8 36-48 % Mean Corpuscular Volume 88.8 79-99 fL Mean Corpuscular Hemoglobin 29.7 27.0-33.0 pg Mean Corpuscular Hemoglobin Concent 33.4 32.0-36.0 g/dL Red Cell Distribution Width 13.9 11.0-15.5 % Platelet Count 294 130-400 K/uL Mean Platelet Volume 11.0 H 7.5-10.5 fL Nucleated Red Blood Cells 0.0 0.0-0.19 % Sodium Level 141 136-145 mmol/L Potassium Level 3.2 L 3.5-5.1 mmol/L Chloride Level 103 101-111 mmol/L Carbon Dioxide Level 26 21-32 mmol/L Blood Urea Nitrogen 10 7-18 mg/dL Creatinine 0.9 0.5-1.0 mg/dL Glomerular Filtration Rate Calc 76 >90 mL/min Random Glucose 109 H 70-105 mg/dL Total Calcium 9.0 8.5-10.1 mg/dL Magnesium Level 1.50 L 1.80-2.40 mg/dL Total Bilirubin 0.5 0.2-1.0 mg/dL Aspartate Amino Transf (AST/SGOT) 20 10-37 U/L Alanine Aminotransferase (ALT/SGPT) 168 H 12-78 U/L Alkaline Phosphatase 130 50-136 U/L Total Protein 7.2 6.0-8.3 g/dL Albumin 2.8 L 3.5-5.0 g/dL Amylase Level 77 # 25-115 U/L Lipase 36 16-77 U/L ASSESSMENT: Biliary pancreatitis. Cholelithiasis with gross dilatation of the CBD and hepatic ducts. Possible common bile duct stricture. Abdominal pain. Elevated liver enzymes, improving. Acute renal failure, resolved. PLAN: GI has evaluated patient and scheduled for an ERCP for today. Continue levofloxacin IV. Continue GI prophylaxis. Continue pain management. Avoid nephrotoxic medications. Monitor renal function. This case was reviewed and discussed with my supervising physician Dr. Rouse and the above assessment and plan was formulated and agreed upon. ATTESTATION BY PHYSICIAN I have seen and examined the patient. I reviewed the documentation, medical decision making, and treatment plan as noted by the mid-level provider above. I agree with the findings and plan of care. YVAN ROUSE MD, [facility] Nov 13, 2024 22:00
[2024-11-14] VITALS (8 sets, daily range): BP systolic 109–163; BP diastolic 66–99; PULSE 71–81; RESP 18–20; TEMP 97.4–98.2; O2SAT 97
[2024-11-14 05:26] LABS: NUCLEATED RED BLOOD CELLS 0.0 % (0.0-0.19); PLATELET COUNT (AUTO) 297.0 K/uL (130-400); RED BLOOD CELL COUNT(AUTO) 4.29 MIL/uL (4.00-5.50); RED CELL DISTRIBUTION WIDTH 13.9 % (11.0-15.5); WHITE BLOOD COUNT (AUTO) 9.7 K/uL (4.8-10.8)
[2024-11-14 05:50] LABS: ASPARTATE AMINOTRANSFERASE 16.0 U/L (10-37); CREATININE 0.9 mg/dL (0.5-1.0); GLOMERULAR FILTR. RATE CALC 76.0 mL/min (>90); GLUCOSE,RANDOM 117.0 mg/dL (70-105); SODIUM SERUM 141.0 mmol/L (136-145); TOTAL PROTEIN, SERUM 6.9 g/dL (6.0-8.3); UREA NITROGEN, BLOOD 10.0 mg/dL (7-18)
--- NOTE | 2024-11-14 10:40 | HMCIMG ---
HISTORY: CHOLELITHIASIS TECHNIQUE: ERCP BILI/PANC DUCT FINDINGS/IMPRESSION: Fluoroscopic image/s obtained for procedure documentation. Please see operative report for more details. Patient underwent retrograde cholangiopancreatography with placement of endoscopic stent. Patient also underwent. Postdilatation and guidewire passage including sphincterotomy. Fluoroscopy time 2.37 minutes. Details of the finding in the procedural notes.
[2024-11-14] MEDS: MAGNESIUM 2GM PREMIX 50ML 50 ML IV PRN (23:09)
[2024-11-15] VITALS (9 sets, daily range): BP systolic 110–168; BP diastolic 76–98; PULSE 74–88; RESP 16–18; TEMP 97.6–98.8; O2SAT 95
--- NOTE | 2024-11-15 19:47 | PN ---
GENERAL SURGERY PROGRESS NOTE Date/Time Patient Seen: 11/15/2024 6:00 p.m. Problem List: Choledocholithiasis Interval History: Patient reports no abdominal pain. She is tolerating a diet ambulating and having bowel movements. Current Medications Medications (Trade) Dose Ordered Sig/Jamari Route Start Time Stop Time Status Last Admin Dose Admin Clonidine HCl (CATApres 0.1 mg TAB) 0.1 mg BID PO 11/09/24 21:00 12/09/24 20:59 11/15/24 08:32 0.1 MG Dextrose/Sodium Chloride 1,000 ml @ 100 mls/hr Q10H IV 11/09/24 10:00 12/09/24 09:59 11/13/24 18:54 100 MLS/HR Famotidine (Pepcid 20mg Vial) 20 mg Q24H IV 11/09/24 21:00 12/09/24 20:59 11/14/24 20:41 20 MG HCTZ/Losartan Potassium (Hyzaar 50-12.5 Tablet) 2 tab DAILY PO 11/10/24 09:00 12/10/24 08:59 11/15/24 08:32 2 TAB Insulin Human Regular (humuLIN R 100 UNIT/ML 3ML) INSULIN SLIDING SCAL... ACHS SQ 11/09/24 11:30 12/09/24 11:29 Labetalol HCl (TRANdate 200 MG TABLET) 200 mg BID PO 11/09/24 21:00 12/09/24 20:59 11/15/24 08:32 200 MG Levofloxacin/ Dextrose (LEvaquIN 750 MG/ D5W 150 ML) 750 mg ONCE IV 11/13/24 16:30 11/13/24 20:30 DC Levofloxacin/ Dextrose (LEvaquIN 750 MG/ D5W 150 ML) 750 mg Q24H IV 11/09/24 19:00 11/10/24 08:16 DC 11/09/24 20:17 750 MG Levofloxacin/ Dextrose (LEvaquIN 750 MG/ D5W 150 ML) 750 mg Q48H IV 11/11/24 20:00 11/19/24 18:59 11/15/24 06:02 750 MG Physical Examination: GENERAL: No acute distress. HEAD: Normal with no signs of head trauma. EYES: PERRLA, EOMI, conjunctiva and sclera normal. ENT: Hearing grossly intact, normal oropharynx. NECK: Supple without JVD. There is no tenderness, lymphadenopathy, or masses. No thyromegaly. Normal carotid upstrokes without bruits. LUNGS: Clear breath sounds bilaterally. There are right basilar rales one third of the way up the chest. No wheezes, or rhonchi. HEART: Normal rate and rhythm. Normal S1 and S2 without mumurs, gallop or rub. VASC: Peripheral pulses +2 bilaterally. ABD: Bowel sounds normal, soft, nontender, no masses, no organomegaly. No audibl e bruits. : Not examined LYMPH: No lymphadenopathy noted. EXT: No clubbing, cyanosis or edema. SKIN: No rashes or lesions noted. NEURO: Awake, alert, and oriented x3. No focal sensory or strength deficits noted. Vital Signs (last 8hr) Date Time Temp Pulse Resp B/P (MAP) Pulse Ox O2 Delivery O2 Flow Rate FiO2 11/15/24 16:00 98.8 77 17 153/95 94 Room Air Laboratory: Hematology Labs: Test 11/14/24 05:06 Range/Units White Blood Count 9.7 4.8-10.8 K/uL Red Blood Count 4.29 4.00-5.50 MIL/uL Hemoglobin 12.7 12.0-16.0 g/dL Hematocrit 38.2 36-48 % Mean Corpuscular Volume 89.0 79-99 fL Mean Corpuscular Hemoglobin 29.6 27.0-33.0 pg Mean Corpuscular Hemoglobin Concent 33.2 32.0-36.0 g/dL Red Cell Distribution Width 13.9 11.0-15.5 % Platelet Count 297 130-400 K/uL Mean Platelet Volume 11.1 H 7.5-10.5 fL Nucleated Red Blood Cells 0.0 0.0-0.19 % Chemistry Labs: Test 11/15/24 19:23 11/14/24 16:01 11/14/24 05:06 Range/Units Whole Blood Glucose 112 H 70-110 MG/DL Bedside Glucose Comment Notified Nurse Sodium Level 141 136-145 mmol/L Potassium Level 3.5 3.5-5.1 mmol/L Chloride Level 103 101-111 mmol/L Carbon Dioxide Level 26 21-32 mmol/L Blood Urea Nitrogen 10 7-18 mg/dL Creatinine 0.9 0.5-1.0 mg/dL Glomerular Filtration Rate Calc 76 >90 mL/min Random Glucose 117 H 70-105 mg/dL Total Calcium 8.7 8.5-10.1 mg/dL Magnesium Level 1.50 L 1.80-2.40 mg/dL Total Bilirubin 0.4 0.2-1.0 mg/dL Aspartate Amino Transf (AST/SGOT) 16 10-37 U/L Alanine Aminotransferase (ALT/SGPT) 114 H 12-78 U/L Alkaline Phosphatase 109 50-136 U/L Total Protein 6.9 6.0-8.3 g/dL Albumin 2.6 L 3.5-5.0 g/dL Diagnostics / Radiology: No new imaging Impression and Plan: This is a 53-year-old female with choledocholithiasis and a frozen abdomen with previous attempts for cholecystectomy that were aborted. Patient is now status post ERCP with sphincterotomy and stent placement. She is doing well. No acute operative intervention indicated. Patient is okay for discharge from a surgical standpoint. No follow-up necessary. MINDY ESCALANTE DO Nov 15, 2024 19:47
[2024-11-16] VITALS: BP 140/78; PULSE 78; RESP 20; TEMP 98.2
--- NOTE | 2024-11-16 03:06 | PN ---
INFECTIOUS DISEASE FOLLOWUP NOTE DATE OF SERVICE: 11/15/2024 SUBJECTIVE: The patient is seen and examined at bedside today. The patient has no fever, no chills. No sore throat, no rhinorrhea. No bleeding tendency. No depression. No suicidal ideation. No neck pain or neck swelling. . The patient is tolerating diet. PHYSICAL EXAMINATION: VITAL SIGNS: Temperature 97.6. EYES: No icterus. Pupils equal, round, reactive. HENT: No oral thrush seen. Moist oral mucosa. NECK: Supple. No JVD or thyromegaly. LUNGS: Good air entry. No rales. No rhonchi. CARDIOVASCULAR: S1 and S2, regular. No murmur heard. ABDOMEN: Full, soft, nontender. Bowel sound is present. CENTRAL NERVOUS SYSTEM: Awake, alert, oriented x 3. No focal deficits. SKIN: No rashes, no itchiness. LYMPHATIC: No peripheral lymphadenopathy. BACK: No deformity, no pressure ulcer. HEMATOLOGIC: No bleeding or petechial lesions seen. MUSCULOSKELETAL: No joint swelling, erythema or tenderness. VASCULAR: No ischemia or gangrene of extremities. ASSESSMENT: A 53-year-old female with abdominal pain. * Biliary pancreatitis. * Choledocholithiasis. * . * Morbid obesity. * Abdominal pain. * Large ventral hernia. PLAN: * Continue pain management. * Continue nutritional support. * Continue diet as tolerated. * Continue antiemetic. * Monitor electrolytes. * The patient will be followed up closely. TID: [id number] RECEIPT: [id number]
[2024-11-16 04:00] VITALS: BP 120/70; PULSE 89; RESP 18; TEMP 98.1
[2024-11-16 05:48] LABS: NUCLEATED RED BLOOD CELLS 0.0 % (0.0-0.19); PLATELET COUNT (AUTO) 150.0 K/uL (130-400); RED BLOOD CELL COUNT(AUTO) 4.74 MIL/uL (4.00-5.50); RED CELL DISTRIBUTION WIDTH 13.8 % (11.0-15.5); WHITE BLOOD COUNT (AUTO) 10.6 K/uL (4.8-10.8)
[2024-11-16 06:15] LABS: ASPARTATE AMINOTRANSFERASE 26.0 U/L (10-37); CREATININE 0.9 mg/dL (0.5-1.0); GLOMERULAR FILTR. RATE CALC 76.0 mL/min (>90); GLUCOSE,RANDOM 91.0 mg/dL (70-105); SODIUM SERUM 138.0 mmol/L (136-145); TOTAL PROTEIN, SERUM 7.0 g/dL (6.0-8.3); UREA NITROGEN, BLOOD 16.0 mg/dL (7-18)
[2024-11-16 08:00] VITALS: BP 162/105; PULSE 77; RESP 18; TEMP 97.7; O2SAT 93
--- NOTE | 2024-11-16 10:46 | NUR ---
WOUND CARE REFUSED: PATIENT REFUSING WOUND CARE UNTIL AFTER SHOWER. ALSO REQUESTING TO DO OWN WOUND DRESSING CHANGE. EDUCATED PATIENT ON HOW TO PERFORM DRESSING CHANGE. VERBALIZED UNDERSTANDING. WILL CONTINUE TO MONITOR PATIENT AND, CHECK IN AFTER SHOWER TO OFFER ASSISTANCE WITH DRESSING APPLICATION IF NEEDED.
--- NOTE | 2024-11-16 11:16 | PN ---
INFECTIOUS DISEASE FOLLOWUP NOTE DATE OF SERVICE: 11/14/2024. SUBJECTIVE: The patient is seen and examined at bedside today. The patient has no fever, no chills. No vomiting. No diarrhea. has been done with biliary stenting. PHYSICAL EXAMINATION: VITAL SIGNS: Temperature 98.1. EYES: No icterus. Pupils are equal, round, and reactive. HENT: No oral thrush seen. Moist oral mucosa. NECK: Supple. No JVD or thyromegaly. LUNGS: Good air entry. No rales, no rhonchi. CARDIOVASCULAR SYSTEM: S1 and S2 regular. No murmur heard. ABDOMEN: Soft and nontender. Bowel sounds present. CENTRAL NERVOUS SYSTEM: The patient is awake, alert, oriented x 3. No focal deficits. SKIN: No rashes, no itchiness. LYMPHATIC: No peripheral lymphadenopathy. MUSCULOSKELETAL: No joint swelling, erythema or tenderness. BACK: No deformity, no pressure ulcer. ASSESSMENT: A 53-year-old female with abdominal pain. Current problem include; * Biliary pancreatitis. * Cholelithiasis. * Cholecystitis. * Obesity. * Abdominal pain. * Hernia. PLAN: * Continue to levofloxacin. * Continue pain management. * Continue antimetics. * Continue clear liquid diet. * Continue nutritional support. * Continue DVT prophylaxis. TID: [id number] RECEIPT: [id number]
[2024-11-16 12:00] VITALS: BP 104/67; PULSE 82; RESP 18; TEMP 97.6
--- NOTE | 2024-11-16 14:34 | DS ---
Discharge Summary Assessment FINAL DISCHARGE DIAGNOSIS: Biliary pancreatitis. Cholelithiasis with gross dilatation of the CBD and hepatic ducts, s/p ERCP. Cholecystitis. Elevated liver enzymes, improved. Abdominal pain. Obesity. PLAN: Discharge patient to home today. Follow up with PCP in 3-5 days. Follow up with Dr. Blount in 1-2 weeks. This case was reviewed and discussed with my supervising physician Dr. Mcwilliams and the above assessment and plan was formulated and agreed upon. ATTESTATION BY PHYSICIAN I have seen and examined the patient. I reviewed the documentation, medical decision making, and treatment plan as noted by the mid-level provider above. I agree with the findings and plan of care. YVAN MCWILLIAMS MD, [facility] Nov 16, 2024 14:34
--- NOTE | 2024-11-16 16:44 | NUR ---
PATIENT DISCHARGED. MIDLINE REMOVED INTACT. PATIENT DENIES PAIN OR DISCOMFORT AT THIS TIME. EDUCATED PATIENT ON FOLLOW UP APPOINTMENTS AND TO CONTINUE HOME MEDICATIONS ORDERED. WOUND PICTURE AND DRESSING CHANGE PROVIDED TO ABDOMINAL WOUND PRIOR TO DISCHARGE. ALL QUESTIONS AND CONCERNS ANSWERED. PATIENT TRANSPORTED DOWN VIA WHEELCHAIR ALERT AND ORIENTED X 4 WITH ALL PERSONAL BELONGINGS IN HAND.
== END 2024-11-16 16:45 | disposition home or self-care (01) | DRG 871 ==
LOC: EDH 02:48 → EDHIP 02:49 → 4CH 13:52 → 4DH 11-16 09:27
PROVIDERS: ADMIT Internal Medicine Infectious Disease; ATTEND Internal Medicine Infectious Disease
PROC: 0F798DZ Dilation of Common Bile Duct with Intraluminal Device, Via Natural or Artificial Opening Endoscopic (ICD-10-PCS; principal; 2024-11-13)
PROC: BF111ZZ Fluoroscopy of Biliary and Pancreatic Ducts using Low Osmolar Contrast (ICD-10-PCS; 2024-11-13)
DX: A41.9 Sepsis, unspecified organism (principal); K85.10 Biliary acute pancreatitis without necrosis or infection; N17.9 Acute kidney failure, unspecified; Z68.41 Body mass index [BMI] 40.0-44.9, adult; K80.10 Calculus of gallbladder with chronic cholecystitis without obstruction; K83.9 Disease of biliary tract, unspecified; E66.01 Morbid (severe) obesity due to excess calories; I10 Essential (primary) hypertension; K43.9 Ventral hernia without obstruction or gangrene; Z82.3 Family history of stroke; Z82.49 Family history of ischemic heart disease and other diseases of the circulatory system; Z88.0 Allergy status to penicillin; Z88.8 Allergy status to other drugs, medicaments and biological substances; Z79.899 Other long term (current) drug therapy
CPT/HCPCS: 36415; 36556; 43262; 43264; 43274; 71045; 71250; 74176; 74181; 74330; 76705; 80048; 80053; 80076; 80305; 81003; 81025; 82150; 82550; 82948; 83036; 83605; 83615; 83690; 83735; 84443; 84478; 84484; 85025; 85027; 85610; 85730; 87426; 88108; 88305; 93005; 96374; 96375; 99291; A4606; C1769; C1773; C1894; G0378; G0481; J0330; J0360; J1885; J1956; J2003; J2250; J2270; J2405; J2704; J3010; J3475; J3480; J3490; J7030; Q0162; Q9967; A4215; A4222; A4223; A4649; A4657; C1750; C2625; J1308